=== PATIENT | female | born 1935 | race Caucasian/White ===

== ENCOUNTER 2018-05-30 21:30 | Observation (INO) | payer OTHER ==
[2018-05-30] MEDS ORDERED: TETANUS & DIPHTHERIA TOX,ADULT 0.5 ML VIAL ONE (21:58)
[2018-05-30] MEDS ORDERED: MORPHINE 2 MG/ML SYR ONE (21:58)
[2018-05-30] MEDS ORDERED: ONDANSETRON 4 MG/2 ML VIAL ONE (21:58)
[2018-05-30 22:12] LABS: Absolute Lymphocytes (CBC) 1.5 K/uL (0.7-4.9); Absolute Monocytes 0.5 K/uL (0.1-1.3); Absolute Neutrophil 4.2 K/uL (1.8-8.0); Basophils % 0.7 % (0-1.3); Eosinophils % 4.7 % (0-4.4); Hematocrit 35.4 % (36.0-45.0); Lymphocytes % 22.5 % (15.3-44.8); MPV 8.9 fL (7.6-11.3); Monocytes % 8.1 % (3.3-12.3); RBC Red Blood Cell Count 3.95 M/uL (3.86-4.86)
[2018-05-30 22:26] LABS: Potassium 4.3 mmol/L (3.5-5.1)
[2018-05-30] MEDS ORDERED: NA CHLORIDE 0.9% 1,000 ML ONE (23:04)
[2018-05-30] MEDS ORDERED: LIDOCAINE 1% 20 ML MDV ONE (23:08)
[2018-05-30] MEDS ORDERED: FENTANYL CITR 100 MCG/2 ML ONE (23:25)
--- NOTE | 2018-05-31 01:16 | ER ---
Nurse's Notes [facility] Name: Maryse Robins Age: 83 yrs Sex: Female : 1935 Arrival Date: 05/30/2018 Time: 21:31 Bed 4 Private MD: Diagnosis: Avulsion of scalp;Laceration without foreign body of scalp;Facial laceration;Contusion of right wrist Presentation: 05/30 21:31 Presenting complaint: EMS states: PT was walking down the [place] when she tripped and jb4 fell about 6 Ft hitting her head on one of the lower steps. She was not complaining of neck or back pain on scene, no LOC, was able to ambulate to the stretcher. Denies using blood thinners. Has a laceration to her head abrasion to the right wrist. Last Set of vitals 172/82, 100% 2l NC, HR 81. 21:31 Transition of care: patient was not received from another setting of care. Onset of jb4 symptoms was May 30, 2018. Risk Assessment: Do you want to hurt yourself or someone else? Patient reports no desire to harm self or others. Initial Sepsis Screen: Does the patient meet any 2 criteria? No. Patient's initial sepsis screen is negative. Does the patient have a suspected source of infection? No. Patient's initial sepsis screen is negative. Care prior to arrival: IV initiated. 18 GA, in the left antecubital area, Glucose check: 91. 21:31 Method Of Arrival: EMS: [facility] 21:31 Acuity: LUC 2 jb4 05/31 00:27 Mechanism of Injury: Fall down steps. Trauma event details: Injury occurred in the [address], Injury occurred: at home. Injury occurred: May 30, 2018. Triage Assessment: 05/30 21:44 General: Appears in no apparent distress. uncomfortable, Behavior is calm, cooperative. cc3 Pain: Complains of pain in head, right hand Pain currently is 10 out of 10 on a pain scale. Quality of pain is described as aching. EENT: Ear canal clear on bilateral. Neuro: Level of Consciousness is awake, alert, obeys commands, Oriented to person, place, time, situation, Appropriate for age. Cardiovascular: Patient's skin is warm and dry. Respiratory: Airway is patent Trachea midline Respiratory effort is even, unlabored, Respiratory pattern is regular, symmetrical. GI: Abdomen is round non-distended. : No signs and/or symptoms were reported regarding the genitourinary system. Derm: Wound noted left side of the head. Musculoskeletal: Circulation, motion, and sensation intact. Range of motion: limited in right hand and bilateral lower limbs. Trauma Activation: Alert Physician: ED Physician; Name: Dr. Andrade; Notified At: 21:22; Arrived At: 21:22 Physician: General Surgeon; Name: ; Notified At: 21:22; Arrived At: Physician: Radiology; Name: ; Notified At: 21:22; Arrived At: 21:22 Physician: Respiratory; Name: ; Notified At: 21:22; Arrived At: 21:22 Physician: Lab; Name: ; Notified At: 21:22; Arrived At: 21:22 Historical: - Allergies: 21:31 No Known Allergies; jb4 - Home Meds: 21:31 Singulair Oral [Active]; Melatonin Oral [Active]; Zyrtec Oral [Active]; cholesterol jb4 [Active]; - PMHx: 21:31 Dementia; jb4 - PSHx: 21:31 knee replacement x2; jb4 - Immunization history:: Adult Immunizations up to date, Flu vaccine is not up to date. - Social history:: Smoking status: Patient/guardian denies using tobacco, Patient/guardian denies using alcohol. - Immunization history: Last tetanus immunization: unknown. - Ebola Screening: : No symptoms or risks identified at this time. - Family history:: not pertinent. - Hospitalizations: : No recent hospitalization is reported. Screenin:44 Abuse screen: Denies threats or abuse. Denies injuries from another. Nutritional cc3 screening: No deficits noted. Tuberculosis screening: No symptoms or risk factors identified. Fall Risk Ambulatory Aid- None/Bed Rest/Nurse Assist (0 pts). Gait- Impaired (20 pts.). Mental Status- Oriented to own ability (0 pts). Primary Survey: 21:44 Uncontrolled hemorrhage is observed, assessment has been re-ordered to <C> ABC. A: The cc3 patient is alert. Airway: patent, Oxygen via nasal cannula at 2 liters per minute. Oral cavity: clear, gag reflex present, Trachea midline. Breathing/Chest: Respiratory pattern: regular, Respiratory effort: spontaneous, unlabored, Breath sounds: clear, bilaterally. Chest inspection: symmetrical rise and fall of the chest. Circulation: Heart tones present. Skin color: pink, Skin temperature: warm, dry. Disability Alert. Exposure/Environment: All clothing and personal items were removed. Forensic evidence collection is not deemed to be indicated at this time. Items placed in patient belonging bag. There is evidence of uncontrolled external hemorrhage. Provider notified immediately. Methods to control bleeding applied. Obvious injury(ies) are noted at this time: lacerated wound on the left side of the head A warming method has been applied: A warm blanket has been provided to the patient. 05/31 00:27 Reassessment Airway Airway Patent Breathing/Chest Respiratory pattern Regular ak1 Respiratory effort Unlabored Circulation Color [place]anger Temperature Warm Dry Disability Alert. Secondary Survey: 05/30 21:48 HEENT: Head Other lacerated wound on the left side of the head/scalp Face Other cc3 abrasions on the face and nasal bridge Eyes: No injury or deformity noted. to bilateral eyes. Ears: clear bilaterally. Nose: clear to bilateral nares. Gastrointestinal: Abdomen is soft, flat, non-distended. : No signs and/or symptoms were reported regarding the genitourinary system. Musculoskeletal: Circulation, motion, and sensation intact. Range of motion: limited in right hand and bilateral legs. Injury Description: Laceration sustained to left side of the head. Assessment: 05/31 00:28 Reassessment: Patient appears in no apparent distress at this time. No changes from ak1 previously documented assessment. Patient and/or family updated on plan of care and expected duration. Pain level reassessed. Patient is alert, oriented x 3, equal unlabored respirations, skin warm/dry/pink. pt tolerated sutures well. noticed lice in pt's hair while suturing. pt granddaughter informed. 02:01 Reassessment: Patient appears in no apparent distress at this time. No changes from ak1 previously documented assessment. Patient and/or family updated on plan of care and expected duration. Pain level reassessed. Patient is alert, oriented x 3, equal unlabored respirations, skin warm/dry/pink. family and pt informed of need to stay. Dr. Cooley at bedside. bonnet placed on pt's head due to lice. 04:23 Reassessment: Patient appears in no apparent distress at this time. No changes from ak1 previously documented assessment. Patient and/or family updated on plan of care and expected duration. Pain level reassessed. Patient is alert, oriented x 3, equal unlabored respirations, skin warm/dry/pink. report called to Emily nurse for 417. Vital Signs: 05/30 21:31 BP 137 / 84; Pulse 82; Resp 20; Temp 98.5(O); Pulse Ox 100% on R/A; Weight 54.43 kg jb4 (R); Height 5 ft. 4 in. (162.56 cm) (R); Pain 10/10; 22:30 BP 132 / 74; Pulse 18; Resp 78; Pulse Ox 99% on R/A; ea 23:13 BP 143 / 65; Pulse 83; Resp 17; Pulse Ox 100% on R/A; ea 05/31 00:29 BP 154 / 73; Pulse 83; Resp 18; Pulse Ox 98% on R/A; ak1 01:45 BP 99 / 81; Pulse 87; Resp 16; Pulse Ox 100% on R/A; ea 03:26 BP 135 / 60; Pulse 72; Resp 18; Temp 98.1; Pulse Ox 100% on R/A; ak1 04:10 BP 126 / 59; Pulse 71; Resp 18; Temp 98.1(O); Pulse Ox 100% on R/A; Pain 0/10; ak1 05/30 21:31 Body Mass Index 20.60 (54.43 kg, 162.56 cm) jb4 Wasta Coma Score: 05/30 21:44 Eye Response: spontaneous(4). Verbal Response: oriented(5). Motor Response: obeys cc3 commands(6). Total: 15. 05/31 00:41 Eye Response: spontaneous(4). Verbal Response: oriented(5). Motor Response: obeys rn commands(6). Total: 15. 01:14 Eye Response: spontaneous(4). Verbal Response: oriented(5). Motor Response: obeys rn commands(6). Total: 15. Trauma Score (Adult): 05/30 21:44 Eye Response: spontaneous(1); Verbal Response: oriented(1); Motor Response: obeys cc3 commands(2); Systolic BP: > 89 mm Hg(4); Respiratory Rate: 10 to 29 per min(4); Wasta Score: 15; Trauma Score: 12 ED Course: 21:31 Patient arrived in ED. ds1 21:31 Arm band placed on left wrist. jb4 21:33 Todd Andrade MD is Attending Physician. rn 21:38 Zeus Pfeiffer RN is Primary Nurse. jb4 21:44 Mariola Adam is Primary Nurse. cc3 21:44 Patient has correct armband on for positive identification. Placed in gown. Bed in low cc3 position. Call light in reach. Side rails up X2. monitoring analyst on. Pulse ox on. NIBP on. 21:44 Maintain EMS IV. Dressing intact. Good blood return noted. Site clean \T\ dry. Gauge \T\ cc 3 site: gauge 18 left ACV. IV is patent, is intact, with fluids infusing freely, with good blood return. 21:45 Triage completed. jb4 22:00 XRAY Wrist RIGHT 3 view In Process Unspecified. EDMS 22:15 Report given to ALEXIA Ring. cc3 22:22 Radiology exam delayed due to lab results not completed at this time. (BUN/Creatinine). kw1 22:49 Consent for conscious sedation explained by staff, signed by patient, signed by ak1 guardian. 23:30 CT Traumagram (Head C Spine CAP W Con) In Process Unspecified. EDMS 05/31 00:25 Oxygen administration via nasal cannula \T\ 2L/min. ak1 00:26 Thermoregulation: warm blanket given to patient. ak1 00:26 Assist provider with laceration repair on head that was between 7.6 to 12.5 cm using ak1 sutures. Set up tray. Performed by Todd Andrade MD Patient tolerated well. 01:15 Rogerio Davidosn MD is Hospitalizing Provider. rn 01:50 Radiology exam delayed due to Currently receiving antibiotics. Asked to wait approx. 20 kw1 min. 02:[address] via stretcher. kw1 02:17 CT completed. Patient tolerated procedure well. Patient moved back from CT. kw1 02:52 CT Facial Bones W/O Con In Process Unspecified. EDMS 03:26 Patient admitted, IV remains in place. ak1 Administered Medications: 05/30 22:05 Drug: morphine 2 mg Route: IVP; Site: left antecubital; cc3 05/31 00:24 Follow up: Response: No adverse reaction [facility] 05/30 22:10 Drug: Zofran 4 mg Route: IVP; Site: left antecubital; cc3 05/31 00:24 Follow up: Response: No adverse reaction [facility] 05/30 22:12 Drug: Tetanus-Diphtheria Toxoid Adult 0.5 ml {Senior Portfolio Manager: [employer]. Exp: cc3 04/24/2020. Lot #: [id number]. } Route: IM; Site: left deltoid; 05/31 00:25 Follow up: Response: No adverse reaction [facility] 05/30 22:50 Drug: NS 0.9% 1000 ml Route: IV; Rate: 125 ml/hr; Site: left antecubital; [facility] 05/31 01:37 Follow up: IV Status: Infusion continued upon admission [facility] 05/30 23:30 Drug: Lidocaine (1 %) 1 vials Volume: 20 ml; Route: Infiltration; ak 23:50 Drug: fentaNYL (PF) 100 mcg Route: IVP; Site: left antecubital; ak1 05/31 00:24 Follow up: Response: No adverse reaction [facility] 01:45 Drug: Ancef 1 grams Route: IVPB; Site: left antecubital; ak1 02:37 Follow up: IV Status: Completed infusion ak Outcome: 01:16 Decision to Hospitalize by Provider. rn 02:02 Condition: stable ak 02:02 Instructed on the need for admit. 04:11 Admitted to Med/surg accompanied by nurse, family with patient, via stretcher, room ak1 [facility], with oxygen, with chart. 04:[address] results.Patient's length of stay extended due to 05:02 Patient left the ED. ak Signatures: Dispatcher [employer] EDKS LeesMelba ds1 Todd Andrade MD MD rn Krenek, Amber, RN RN ak1 Zeus Pfeiffer RN RN jb4 Dorothea Canada RN RN ea Wilhelm, Kimberly [facility] Mariola Adam cc3
--- NOTE | 2018-05-31 01:16 | EDPHYS ---
Physician Documentation [facility] Name: Maryse Robins Age: 83 yrs Sex: Female : 1935 Arrival Date: 05/30/2018 Time: 21:31 Bed 4 Private MD: ED Physician Todd Andrade HPI: 05/31 00:41 This 83 yrs old Female presents to ER via EMS with complaints of fall, head rn injury. 00:41 The patient or guardian reports injury, pain. The complaints affect the forehead. rn Onset: The symptoms/episode began/occurred just prior to arrival. Associated signs and symptoms: Loss of consciousness: This patient did not experience any loss of consciousness. Pertinent positives: headache, Pertinent negatives: nausea, vomiting, weakness in extremities, generalized weakness. Severity of symptoms: At their worst the symptoms were moderate, in the emergency department the symptoms are unchanged. The patient has not experienced similar symptoms in the past. Granddaughter brought patient after fall down 3 steps, fell forward, hit head on ground, no LOC, no vomiting, did not allow her to stand up or walk, no focal weakness, patient reports pain to low back, head, and right wrist. No vomiting. Stopped her aspirin a few months ago. . Historical: - Allergies: 05/30 21:31 No Known Allergies; jb4 - Home Meds: 21:31 Singulair Oral [Active]; Melatonin Oral [Active]; Zyrtec Oral [Active]; cholesterol jb4 [Active]; - PMHx: 21:31 Dementia; jb4 - PSHx: 21:31 knee replacement x2; jb4 - Immunization history:: Adult Immunizations up to date, Flu vaccine is not up to date. - Social history:: Smoking status: Patient/guardian denies using tobacco, Patient/guardian denies using alcohol. - Immunization history: Last tetanus immunization: unknown. - Ebola Screening: : No symptoms or risks identified at this time. - Family history:: not pertinent. - Hospitalizations: : No recent hospitalization is reported. ROS: 05/31 00:41 Constitutional: Negative for fever, chills, and weight loss, Eyes: Negative for injury, rn pain, redness, and discharge, ENT: Negative for injury, pain, and discharge, Neck: Negative for injury, pain, and swelling, Cardiovascular: Negative for chest pain, palpitations, and edema, Respiratory: Negative for shortness of breath, cough, wheezing, and pleuritic chest pain, Abdomen/GI: Negative for abdominal pain, nausea, vomiting, diarrhea, and constipation, Back: + low back pain MS/Extremity: + right wrist pain Skin: Negative for injury, rash, and discoloration, Neuro: + headache Exam: 00:41 Constitutional: This is a well developed, well nourished patient who is awake, alert, rn appears anxious Head/Face: Normocephalic, + large 18cm curvilinear laceration of scalp and forehead, + underlying 3cm x 2cm defect in galea at level of scalp and midline, no depression of skull, + lice Eyes: + bilateral periorbital swelling and tenderness ENT: Tympanic membranes are normal and external auditory canals are clear. Neck: NO midline tenderness Chest/axilla: Normal chest wall appearance and motion. Nontender with no deformity. No lesions are appreciated. Cardiovascular: Regular rate and rhythm. No pulse deficits. Respiratory: Lungs have equal breath sounds bilaterally, clear to auscultation. No increased work of breathing, no retractions or nasal flaring. Abdomen/GI: soft, non-tender Back: + lower back tenderness lumbar spine, no stepoff MS/ Extremity: Pulses equal, no cyanosis. Neurovascular intact. Full, normal range of motion. + tenderness right distal radius with ecchymosis Neuro: Awake and alert, GCS 15, oriented to person, place, and situation. Cranial nerves II-XII grossly intact. Motor strength 5/5 in all extremities. Sensory grossly intact. Cerebellar exam normal. Vital Signs: 05/30 21:31 BP 137 / 84; Pulse 82; Resp 20; Temp 98.5(O); Pulse Ox 100% on R/A; Weight 54.43 kg jb4 (R); Height 5 ft. 4 in. (162.56 cm) (R); Pain 10/10; 22:30 BP 132 / 74; Pulse 18; Resp 78; Pulse Ox 99% on R/A; ea 23:13 BP 143 / 65; Pulse 83; Resp 17; Pulse Ox 100% on R/A; ea 05/31 00:29 BP 154 / 73; Pulse 83; Resp 18; Pulse Ox 98% on R/A; ak1 01:45 BP 99 / 81; Pulse 87; Resp 16; Pulse Ox 100% on R/A; ea 03:26 BP 135 / 60; Pulse 72; Resp 18; Temp 98.1; Pulse Ox 100% on R/A; ak1 04:10 BP 126 / 59; Pulse 71; Resp 18; Temp 98.1(O); Pulse Ox 100% on R/A; Pain 0/10; ak1 05/30 21:31 Body Mass Index 20.60 (54.43 kg, 162.56 cm) jb4 Timothy Coma Score: 05/30 21:44 Eye Response: spontaneous(4). Verbal Response: oriented(5). Motor Response: obeys cc3 commands(6). Total: 15. 05/31 00:41 Eye Response: spontaneous(4). Verbal Response: oriented(5). Motor Response: obeys rn commands(6). Total: 15. 01:14 Eye Response: spontaneous(4). Verbal Response: oriented(5). Motor Response: obeys rn commands(6). Total: 15. Trauma Score (Adult): 05/30 21:44 Eye Response: spontaneous(1); Verbal Response: oriented(1); Motor Response: obeys cc3 commands(2); Systolic BP: > 89 mm Hg(4); Respiratory Rate: 10 to 29 per min(4); Timothy Score: 15; Trauma Score: 12 Laceration: 05/31 00:11 Wound Repair of 18cm ( 7.1in ) subcutaneous laceration to face. Distal rn neuro/vascular/tendon intact. Anesthesia: Regional Block with 5 mls of 1% lidocaine. Wound prep: Extensive cleansing by nurse by oh, Wound irrigation by nurse by oh, Particulate matter removal of dirt, Wound explored extensively, Copious irrigation. Skin closed with 18 5-0 Prolene using interrupted sutures and sterile technique. galea/subcutaneous closed with 5 3-0 chromic gut using interrupted sutures and sterile technique. Dressed with kerlix. Patient tolerated well. MDM: 05/30 21:33 Patient medically screened. rn 05/31 01:10 ED course: CT head/chest/abd/pelvis negative for acute traumatic injury, scalp/facial rubber turner closed, abx given, consulted with Dr. Davidson, will admit to his service, requests hospitalist consult. . 01:14 Differential diagnosis: Contusion of Hematoma on Laceration of Intracranial bleed- rn Concussion. Data reviewed: vital signs, nurses notes, lab test result(s), radiologic studies, CT scan. 01:15 Counseling: I had a detailed discussion with the patient and/or guardian regarding: the rn historical points, exam findings, and any diagnostic results supporting the discharge/admit diagnosis, lab results, radiology results, the need for further work-up and treatment in the hospital. Response to treatment: the patient's symptoms have markedly improved after treatment. Admission orders: after a detailed discussion of the patient's condition and case, the admit orders are written by me. 05/30 21:34 Order name: Basic Metabolic Panel; Complete Time: 22:55 rn 05/30 21:34 Order name: CBC with Diff; Complete Time: 22:55 rn 05/30 21:34 Order name: CT Traumagram (Head C Spine CAP W Con) rn 05/30 21:34 Order name: Creatinine for Radiology; Complete Time: 22:55 rn 05/30 21:34 Order name: Type And Screen; Complete Time: 00:17 rn 05/30 21:34 Order name: XRAY Wrist RIGHT 3 view rn 05/31 00:24 Order name: CT Facial Bones W/O Con rn 05/30 21:34 Order name: Labs collected and sent; Complete Time: 22:26 rn 05/31 01:15 Order name: EKG; Complete Time: 01:15 rn 05/31 01:15 Order name: EKG - Nurse/Tech; Complete Time: 01:45 rn 05/31 03:58 Order name: CONS Physician Consult EDMS Administered Medications: 05/30 22:05 Drug: morphine 2 mg Route: IVP; Site: left antecubital; cc3 05/31 00:24 Follow up: Response: No adverse reaction ak1 05/30 22:10 Drug: Zofran 4 mg Route: IVP; Site: left antecubital; cc3 05/31 00:24 Follow up: Response: No adverse reaction ak1 05/30 22:12 Drug: Tetanus-Diphtheria Toxoid Adult 0.5 ml {Slitter Cut Off Operator: [employer]. Exp: cc3 04/24/2020. Lot #: [id number]. } Route: IM; Site: left deltoid; 05/31 00:25 Follow up: Response: No adverse reaction ak1 05/30 22:50 Drug: NS 0.9% 1000 ml Route: IV; Rate: 125 ml/hr; Site: left antecubital; ak1 05/31 01:37 Follow up: IV Status: Infusion continued upon admission ak1 05/30 23:30 Drug: Lidocaine (1 %) 1 vials Volume: 20 ml; Route: Infiltration; ak1 23:50 Drug: fentaNYL (PF) 100 mcg Route: IVP; Site: left antecubital; ak1 05/31 00:24 Follow up: Response: No adverse reaction ak1 01:45 Drug: Ancef 1 grams Route: IVPB; Site: left antecubital; ak1 02:37 Follow up: IV Status: Completed infusion ak1 Disposition: 05/31/18 01:16 Hospitalization ordered by Rogerio Davidson for Observation. Preliminary diagnosis are Avulsion of scalp, Laceration without foreign body of scalp, Facial laceration, Contusion of right wrist. - Bed requested for Telemetry/MedSurg (observation). - Status is Observation. ak1 - Condition is Stable. - Problem is new. - Symptoms have improved. UTI on Admission? No Signatures: Dispatcher [employer] EDMS Inés Mcqueen RN RN kl Ballard, Brenda, RN RN bb Nieto, Roman, MD MD rn Krenek, Amber, RN RN ak1 Zeus Pfeiffer RN RN jb4 Mariola Adam cc3 Corrections: (The following items were deleted from the chart) 01:06 00:41 Constitutional: This is a well developed, well nourished patient who is awake, rn alert, appears anxious Head/Face: Normocephalic, + large 18cm curvilinear laceration of scalp and forehead, + underlying 3cm x 2cm defect in galea at level of scalp and midline, no depression of skull Eyes: + bilateral periorbital swelling and tenderness ENT: Tympanic membranes are normal and external auditory canals are clear. Neck: NO midline tenderness Chest/axilla: Normal chest wall appearance and motion. Nontender with no deformity. No lesions are appreciated. Cardiovascular: Regular rate and rhythm. No pulse deficits. Respiratory: Lungs have equal breath sounds bilaterally, clear to auscultation. No increased work of breathing, no retractions or nasal flaring. Abdomen/GI: soft, non-tender Back: + lower back tenderness lumbar spine, no stepoff MS/ Extremity: Pulses equal, no cyanosis. Neurovascular intact. Full, normal range of motion. + tenderness right distal radius with ecchymosis Neuro: Awake and alert, GCS 15, oriented to person, place, and situation. Cranial nerves II-XII grossly intact. Motor strength 5/5 in all extremities. Sensory grossly intact. Cerebellar exam normal. rn 01:27 00:11 Wound Repair of 18cm ( 7.1in ) subcutaneous laceration to face. Distal rn neuro/vascular/tendon intact. Anesthesia: Regional Block with 5 mls of 1% lidocaine. Wound prep: Extensive cleansing by nurse by me, Wound irrigation by nurse by me, Particulate matter removal of dirt, Wound explored extensively, Copious irrigation. Skin closed with 18 5-0 Prolene using interrupted sutures and sterile technique. galea closed with 5 3-0 chromic gut using interrupted sutures and sterile technique. Dressed with kerlix. Patient tolerated well. rn 04:06 01:16 Hospitalization Ordered by Rogerio Davidson MD for Observation. Preliminary diagnosis kl is Avulsion of scalp; Laceration without foreign body of scalp; Facial laceration; Contusion of right wrist. Bed requested for Telemetry/MedSurg (observation). Status is Observation. Condition is Stable. Problem is new. Symptoms have improved. UTI on Admission? No. rn 05:02 04:06 05/31/2018 01:16 Hospitalization Ordered by Rogerio Davidson MD for Observation. ak1 Preliminary diagnosis is Avulsion of scalp; Laceration without foreign body of scalp; Facial laceration; Contusion of right wrist. Bed requested for Telemetry/MedSurg (observation). Status is Observation. Condition is Stable. Problem is new. Symptoms have improved. UTI on Admission? No. kl
[2018-05-31] MEDS ORDERED: CEFAZOLIN SODIUM 1 GM/VIAL ONE (01:52)
[2018-05-31] MEDS ORDERED: NA CHLORIDE 0.9% 50 ML IV ONE (01:53)
[2018-05-31] MEDS ORDERED: ONDANSETRON 4 MG/2 ML VIAL IV PRN (04:54)
[2018-05-31 05:18] VITALS: BMI 22.3
--- NOTE | 2018-05-31 05:33 | P.CNS ---
Date of Consult: 05/31/18 Reason for Consult: co-management Requesting Physician: Rogerio Davidson Chief Complaint: fall, scalp lasceration History of Present Illness: Ms Robins is an 83 years old woman with history of dementia, who fell down 3 steps, leading with a large area of scalp laceration. Apparently she tripped and fell. The patient did not have LOC. At my encounter the patient was confused and not able to provide further history. Lab work shows normal WBC count. Facial bone CT scan shows age indeterminate nasal bone fracture, right wrist XR shows no fracture, CT head/neck/chest/abd and pelvis showed no acute abnormalities other than swelling tissue on her left frontal scalp area. Allergies codeine Allergy (Intermediate, Verified 07/08/11 15:05) Rash Home medications list reviewed: Yes Home Medications: Alendronate Sodium [Fosamax] 35 mg PO 1X 07/04/11 Cholecalciferol (Vitamin D3) [Vitamin D3] 1,000 unit PO DAILY 07/04/11 Esomeprazole Mag Trihydrate [Nexium] 40 mg PO DAILY 07/04/11 Ferrous Fumarate [Iron] 65 mg PO DAILY 07/04/11 Melatonin 5 mg PO DAILY 07/04/11 Naproxen Sodium [Aleve] 220 mg PO BID 07/04/11 Pravastatin [Pravachol*] 40 mg PO DAILY 07/04/11 Siberian Ginseng Root [Ginseng] 250 mg PO DAILY 07/04/11 Enoxaparin Sodium [Lovenox] 40 mg SQ DAILY #10 ml 07/11/11 Ferrous Gluconate [Fergon] 300 mg PO DAILY #30 tab 07/11/11 Hydrocodone/Acetaminophen [Dunlap 5-325 Tablet] 1 - 2 tab PO Q4H PRN #50 tablet 07/11/11 - Past Medical/Surgical History Diabetic: No -: dementia -: knee replacement - Family History Father History Unknown: Yes Mother History Unknown: Yes - Social History Smoking Status: Former smoker Alcohol use: Yes CD- Drugs: No Caffeine use: Yes Place of Residence: Home Review of Systems 10-point ROS is otherwise unremarkable Physical Examination Temp Pulse Resp BP Pulse Ox 97.6 F 81 14 129/61 95 05/31/18 05:16 05/31/18 05:16 05/31/18 05:16 05/31/18 05:16 05/31/18 05:16 General: Alert, In no apparent distress, Demented, Confused HEENT: PERRLA, Mucous membr. moist/pink, Other (traumatic left frontal scalp laceration), Sclerae nonicteric Neck: Supple, 2+ carotid pulse no bruit, No LAD, Without JVD or thyroid abnormality Respiratory: Clear to auscultation bilaterally, Normal air movement Cardiovascular: Normal S1 S2, No gallops Gastrointestinal: Normal bowel sounds, No tenderness Musculoskeletal: No tenderness Integumentary: No rashes Neurological: Normal tone, Normal affect, Dementia Lymphatics: No axilla or inguinal lymphadenopathy Laboratory Data (last 24 hrs) 05/30/18 22:00: Creatinine 1.12 05/30/18 22:00: WBC 6.5, Hgb 11.8 L, Hct 35.4 L, Plt Count 226 05/30/18 22:00: Sodium 142, Potassium 4.3, BUN 17, Creatinine 1.14, Glucose 110 H - Problems (1) Dementia Current Visit: Yes Status: Acute Qualifiers: Dementia type: unspecified type Dementia behavioral disturbance: without behavioral disturbance Qualified Code(s): F03.90 - Unspecified dementia without behavioral disturbance (2) Fall Current Visit: Yes Status: Acute Qualifiers: Encounter type: initial encounter Qualified Code(s): W19.XXXA - Unspecified fall, initial encounter (3) Laceration of scalp Current Visit: Yes Status: Acute Qualifiers: Encounter type: initial encounter Qualified Code(s): S01.01XA - Laceration without foreign body of scalp, initial encounter Conclusions/Impression: The patient had stitches placed over her left frontal scalp laceration. She will be followed up by Dr Davidson. Will resume her home medication after verification. Critical Care: No
[2018-05-31] MEDS: NA CHLORIDE 0.9% 1,000 ML IV SCH ×2 (05:54→13:10)
[2018-05-31] MEDS: MEPERIDINE HCL 25 MG/0.5 ML IV PRN ×2 (05:55→10:44)
[2018-05-31] MEDS ORDERED: INFLUENZA VACCINE (for 3y+) 0.5 ML DOSE IMVAC ONE (08:00)
[2018-05-31] MEDS ORDERED: PNEUMOCOCCAL VACCINE 0.5 ML IMVAC ONE (08:00)
[2018-05-31] MEDS ORDERED: CEFAZOLIN/NS 1gm 1 GM/50 ML BAG IVPB SCH (09:00)
[2018-05-31] MEDS: CEFAZOLIN/SWI 1gm 1 GM/10 ML SYR IV SCH ×2 (10:39→21:45)
[2018-05-31] MEDS ORDERED: LICE TREATMENT 1 APPL/120 ML BTL TOP ONE (10:45)
--- NOTE | 2018-05-31 11:47 | RAD REPORT ---
EXAM DESCRIPTION: CT head without intravenous contrast CT cervical spine without intravenous contrast CT Chest With Intravenous Contrast CT Abdomen and Pelvis With Intravenous Contrast CLINICAL HISTORY: The patient is 83 years old and is Female; fall down stairs, head trauma, back christie n, pelvic pain TECHNIQUE: Axial computed tomography images of the brain/head and cervical spine without contrast as well as chest, abdomen and pelvis with intravenous contrast. Sagittal and coronal reformatted imag es were created and reviewed. This CT exam was performed using one or more of the following dose re duction techniques: automated exposure control, adjustment of the mA and/or kV according to patient size, and/or use of iterative reconstruction technique. COMPARISON: None. FINDINGS: Brain: No acute intracranial hemorrhage. No acute territorial infarct. No extra-axial collection. No mass ef fect or herniation. Mild prominence of the sulci and cisterns Confluent periventricular and subcort ical white matter hypodensity is noted. Ventricles: Allowing for underlying cerebral volume loss, ventricular size appears within normal limi ts.. Globes and orbits: No acute abnormality. CHEST: LUNGS: See below. PLEURAL SPACE: No pleural effusion or pneumothorax. Dependent subsegmental atelectasis bilaterally . Scattered centrilobular nodularities and tree-in-bud opacities in the upper and midlung zones. Mild apical pleural thickening/calcification. HEART: Confluent periventricular white matter hypodensity. No significant pericardial effusion. THYROID: Two 1.1 cm posterior right thyroid hypodense nodules. ABDOMEN: LIVER: Unremarkable. No mass. GALLBLADDER AND BILE DUCTS: Unremarkable. No calcified stones. No ductal dilation. PANCREAS: Unremarkable. No ductal dilation. No mass. SPLEEN: Unremarkable. No splenomegaly. ADRENALS: Unremarkable. No mass. KIDNEYS AND URETERS: 1.6 cm left renal hypodensity, likely cyst. No hydronephrosis or hydroureter. No solid mass. STOMACH AND BOWEL: Unremarkable. No obstruction. No mucosal thickening. PELVIS: APPENDIX: The appendix is seen and is within normal limits BLADDER: Unremarkable. No mass. REPRODUCTIVE: 1.6 cm heterogenous enhancing mass in the right fundus of the uterus, likely fibroid . CHEST, ABDOMEN and PELVIS: INTRAPERITONEAL SPACE: No intracranial hemorrhage. No extra-axial collection. No mass effect or mi dline shift. No free air. BONES/JOINTS: No underlying fracture. Advanced osteopenia. Multilevel degenerative changes with anterolisthesis of C3 on C4, C4 on C5 as well as C5 on C6. Flexion. Advanced osteopenia and degenerative changes with multilevel step-like anterolisthe ses and lower cervical disc space narrowing. Disc space narrowing at C5-6, C6-7 and C7-T1. Levoscoliosis of the lumbar spine centered at L1 with slight lateral subluxation of L1 with respect to L2. Diffuse lumbar degenerative disc disease with reactive endplate sclerosis and scattere d vacuum phenomenon. Grade 1 anterolisthesis of L4 on L5 on a degenerative basis. SOFT TISSUES: Large soft tissue laceration involving the left frontotemporal scalp. There is quest ionable extravasation of the outer table. Trace subcutaneous emphysema is seen. Small area of soft tissue swelling in the cutaneous hematoma in the left right supraorbital soft tissues. Thickening of the retrodental soft tissues. VASCULATURE: No aortic dissection or aneurysm. Mild calcification of the abdominal aorta. LYMPH NODES: Unremarkable. No enlarged lymph nodes. OTHER FINDINGS: Cerebral volume loss. IMPRESSION: 1. No acute intracranial hemorrhage or herniation. 2. No acute fracture of the cervical spine. 3. No posttraumatic intrathoracic, abdominal or pelvic abnormality. 4. Large soft tissue laceration of the left frontotemporal scalp. No underlying osseous abnormality . 5. Additional small area of swelling/hematoma in the right supraorbital soft tissues. 6. Apical pleural thickening/calcification and scattered nodularities and tree-in-bud opacities sug gestive of chronic lung changes versus small airway disease. 7. Two 1.1 cm posterior right thyroid hypodense nodules. No follow-up imaging is recommended. Reference: J Am Ivanna Radiol. 2015 May;12(2): 143-50. 8. Large hiatal hernia. 9. Uterine fibroid. 10. Advanced osteopenia, lumbar dextroscoliosis and advanced multilevel multifactorial degenerative c hanges. Electronically signed by: Kedar Garcia DO 05/30/2018 11:53 PM SENIOR ENGINEERING SPECIALIST ADDENDUM: Cerebral volume loss and chronic small vessel ischemic changes. If clinical concern for ac [place] ischemia, consider MRI brain without contrast for further evaluation. Electronically signed by: Kedar Garcia DO 05/31/2018 12:03 AM SENIOR ENGINEERING SPECIALIST Due to temporary technical issues with the PACS/Fluency reporting system, reports are being signed by the in house radiologist as a courtesy to ensure prompt reporting. The interpreting radiologist is f ully responsible for the content of the report.
--- NOTE | 2018-05-31 11:58 | RAD REPORT ---
EXAM DESCRIPTION: CT maxillofacial without IV contrast CLINICAL HISTORY: 83-year-old female with facial pain. TECHNIQUE: Axial CT of the facial bones was performed without intravenous contrast with sagittal and coronal reformatted images. The CT study is performed according to ALARA (as low as reasonably achie vable) or ALARA/IMAGE GENTLY, with automatic adjustment of mA and/or kV according to patient size. Performed on: 05/31/2018 at 2:17 AM COMPARISON: Head CT performed on 05/30/2018. FINDINGS: The bony orbits are intact. Both globes are intact and are symmetric. The extraocular mu scles and optic nerves are symmetric. The intraconal fat is preserved. There is no evidence of intrao rbital emphysema. There is evidence of prior bilateral scleral banding. There is no significant mucosal thickening of the paranasal sinuses. There are age indeterminate, nondisplaced bilateral nasal bone fractures. The bony nasal septum is de viated towards the left. The anterior maxillary spine is intact. The mandible is intact. The tempor omandibular joints are preserved. There are degenerative changes of the cervical spine. The visualized mastoid air cells and middle ear cavities are clear. There is mild right frontal scalp soft tissue swelling and minimal subcutaneous emphysema consistent with a small laceration. IMPRESSION: 1. There are age indeterminant, nondisplaced bilateral nasal bone fractures.. 2. Mild right frontal scalp soft tissue swelling and small laceration. 3. Leftward deviation of the nasal septum. Electronically signed by: Elizabeth Maradiaga DO 05/31/2018 3:38 AM SEARCH ADVERTISING STRATEGIST Due to temporary technical issues with the PACS/Fluency reporting system, reports are being signed by the in house radiologist as a courtesy to ensure prompt reporting. The interpreting radiologist is f ully responsible for the content of the report.
--- NOTE | 2018-05-31 12:20 | RAD REPORT ---
EXAM DESCRIPTION: Wrist Right 3 View CLINICAL HISTORY: 83 years Female, Pain COMPARISON: None. FINDINGS: There is severed osteoarthritis about the STT joint and the first carpometacarpal joint. There is chondrocalcinosis of the pericardial fibrocartilage and the intercarpal ligaments. There is moderately severe soft tissue swelling about the distal radius and ulna. IMPRESSION: 1. 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 2. Chondrocalcinosis. 3. Soft tissue swelling. Electronically signed by: Teresa Pastor MD 05/30/2018 11:24 PM FOOD TRAY ASSEMBLER workstation: [id number] Due to temporary technical issues with the PACS/Fluency reporting system, reports are being signed by the in house radiologist as a courtesy to ensure prompt reporting. The interpreting radiologist is f kevinly responsible for the content of the report.
[2018-05-31 14:16] LABS: Urine Appearance CLEAR; Urine Bilirubin NEGATIVE (NEG); Urine Blood NEGATIVE (NEG); Urine Color YELLOW; Urine Glucose NEGATIVE (NEG); Urine Protein NEGATIVE (NEG); Urine Specific Gravity >=1.030 (1.005-1.030); Urine Urobilinogen 0.2 mg/dL (0.2-1.0); Urine pH 6.5 (5.0-7.0)
[2018-05-31 14:18] LABS: Urine Microscopic Reflex ORDER UMIC
[2018-05-31 16:33] LABS: Urine Bacteria 20-50 /HPF (<20); Urine Culture Reflex Order REFLEXED; Urine RBC <5 /HPF (NONE SEEN)
--- NOTE | 2018-05-31 18:41 | EKG ---
Test Date: 2018-05-31 Test Time: 01:40:38 Swimming Pool Installer And Servicer: EASTON MEASUREMENT RESULTS: Intervals: Rate: 78 HI: 188 QRSD: 56 QT: 358 QTc: 408 [place]: P: 105 HI: 188 QRS: 47 T: 87 INTERPRETIVE STATEMENTS: Sinus rhythm with premature atrial complexes Abnormal ECG Compared to ECG 05/31/2018 01:40:12 no significant change from previous ECG Electronically Signed On 05-31-18 18:41:01 PATIENT SUPPORT PARTNER by Ricci Monique
--- NOTE | 2018-05-31 18:41 | EKG ---
Test Date: 2018-05-31 Test Time: 01:40:12 Steam Tank Operator: EASTON MEASUREMENT RESULTS: Intervals: Rate: 84 SD: 154 QRSD: 62 QT: 398 QTc: 470 [place]: P: 99 SD: 154 QRS: 44 T: 13 INTERPRETIVE STATEMENTS: Sinus rhythm with premature atrial complexes Otherwise normal ECG Compared to ECG 05/16/2012 13:23:28 Atrial premature complex(es) now present Electronically Signed On 05-31-18 18:41:10 FIELD CROP GROWER by Ricci Monique
--- NOTE | 2018-05-31 21:50 | HP ---
Date of Admission: 05/31/2018 Reason: Status post fall. History Of Present Illness: The patient is an 83-year-old female with dementia, who fell while hanh li down the stairs approximately 3 steps, landed on her face and scalp, complaining of nonspecific pa in around the head and neck region. She has dementia, unable to give an adequate review of systems. Based on the ER documentation, she did not have LOC, no specific point localization of pain. She is breathing well. Her vitals have remained stable. She had a traumagram done as well as facial x-ray s and right wrist x-rays only showing a nondisplaced nasal fracture and no other significant findings . She was admitted for observation and physical therapy prior to discharge. She is awake and alert, in no acute distress at this time. Review of Systems: Otherwise unremarkable. Past Medical History: Significant for dementia and knee replacement. Allergies: INCLUDE CODEINE. Social History: She does not smoke currently, she used to in the past. Drinks alcohol occasionally. Family History: Noncontributory. Physical Examination: Vital Signs: Stable. She is afebrile. General: She is awake, confused. Head and Neck: Cranial nerves 2 through 12 are grossly within normal limits. No neck masses. No JV D. Throat clear. Neck is supple. Trachea is midline. Neck is nontender and there is approximately a 15-cm laceration on the left frontal region, which has been suture closed by the ER physician, tanya ks clean, dry, and intact. There is some ecchymosis underneath the eyes and the nose bones are tende r. Chest: Clear. Heart: S1, S2. Abdomen: Soft, nondistended, and nontender. Pelvis: Stable. Extremities: Full range of motion. Nontender. Neuro: Nonfocal. Diagnostic Data: Facial bones show a nondisplaced nasal fracture. Wrist x-ray is negative. Head, C -spine, chest, abdomen, and pelvis CT are all negative except for the laceration on the left frontal region. There is no intracranial injury. Laboratory Data: Reviewed. H and H are 11.8 and 35.4. Platelets are 226. Chemistry reviewed. Glu cose is 110, otherwise essentially unremarkable. Assessment: An 83-year-old female, status post fall with a nasal fracture and laceration of the left frontal region. Recommendations: We will get Physical Therapy to help the patient with ambulation once they clear he r. She will be discharged home tomorrow. The hospitalist is consulted to manage her medical issues, parenteral pain management, incentive spirometry, and DVT prophylaxis. CONNOR/GIANNA Voice ID: [id number]
[2018-06-01] MEDS: NA CHLORIDE 0.9% 1,000 ML IV SCH (01:19)
[2018-06-01 04:43] LABS: RBC Red Blood Cell Count 3.09 M/uL (3.86-4.86)
[2018-06-01 04:44] LABS: Absolute Lymphocytes (CBC) 1.3 K/uL (0.7-4.9); Absolute Monocytes 0.5 K/uL (0.1-1.3); Absolute Neutrophil 2.1 K/uL (1.8-8.0); Basophils % 1.1 % (0-1.3); Eosinophils % 8.1 % (0-4.4); Hematocrit 27.5 % (36.0-45.0); MPV 9.1 fL (7.6-11.3); Monocytes % 11.6 % (3.3-12.3)
[2018-06-01 05:04] LABS: Potassium 3.9 mmol/L (3.5-5.1)
[2018-06-01] MEDS: CEFAZOLIN/SWI 1gm 1 GM/10 ML SYR IV SCH (08:59)
[2018-06-01 09:53] VITALS: O2SAT 96
--- NOTE | 2018-06-01 13:52 | P.PN ---
Subjective Date of Service: 06/01/18 Chief Complaint: fall, scalp lasceration Subjective: Ambulating, Improving, Working w/ PT, Doing well Review of Systems 10-point ROS is otherwise unremarkable Physical Examination - Vital Signs Temperature: 98.4 F Blood Pressure: 137/62 Pulse: 87 Respirations: 18 Pulse Ox (%): 96 - Physical Exam General: Alert, In no apparent distress HEENT: PERRLA, Other (Patient with laceration on the right forehead. Incision clean dry and intact), EOMI Neck: Supple, JVD not distended Respiratory: Clear to auscultation bilaterally, Normal air movement Cardiovascular: Regular rate/rhythm, Normal S1 S2 Gastrointestinal: Normal bowel sounds, No tenderness Musculoskeletal: No tenderness Integumentary: No rashes Neurological: Normal speech, Normal tone, Normal affect Lymphatics: No axilla or inguinal lymphadenopathy - Studies Medications List Reviewed: Yes Assessment And Plan - Current Problems (Diagnosis) (1) Fall Current Visit: Yes Status: Acute Qualifiers: Encounter type: initial encounter Qualified Code(s): W19.XXXA - Unspecified fall, initial encounter (2) Laceration of scalp Current Visit: Yes Status: Acute Qualifiers: Encounter type: initial encounter Qualified Code(s): S01.01XA - Laceration without foreign body of scalp, initial encounter (3) Dementia Current Visit: Yes Status: Chronic Qualifiers: Dementia type: unspecified type Dementia behavioral disturbance: without behavioral disturbance Qualified Code(s): F03.90 - Unspecified dementia without behavioral disturbance - Plan Patient doing well overall. Head laceration healing well. Patient worked up for syncope doing well as well. Treatment for lice provided. Patient to be discharged by general surgery today. Discharge Plan: Home Plan to discharge in: 48 Hours - Code Status/Comfort Care Code Status Assessed: Yes Critical Care: No
[2018-06-01 18:16] VITALS: BP 110/52; TEMP 98.7
--- NOTE | 2018-06-02 00:54 | DS ---
Date of Discharge: 06/01/2018 Admitting Diagnosis: Fall with scalp laceration and nasal fracture. Discharge Diagnosis: Fall with scalp laceration and nasal fracture. Hospital Course: The patient is an 83-year-old female who fell without loss of consciousness and joan tained nondisplaced nasal fracture and a large laceration on her left frontal region which was repair ed by the ER physician. She was admitted for observation. Physical Therapy was consulted to make santiago re she could move well and be able to take care of herself at home. She lives with her daughter. Sh e is tolerating diet, ambulating. Pain is minimal. Wound is clean. She is afebrile. Therefore, th e patient will be discharged to home. She was seen by the hospitalist for medical management. No si gnificant medical issues were identified. Therefore, the patient will be discharged to home. Disposition: Home. Condition: Stable. Discharge Instructions: Resume home medications and diet. Activity as tolerated. Neosporin to porter schwarz b.i.d. August shower. Follow up in my office on June 10 for suture removal. /MODL Voice ID: [id number] Report ID: [id number]
--- NOTE | 2018-06-02 12:25 | CON ---
Date of Consultation: 06/01/2018 Reason For Consultation: Possible nasal fracture. History Of Present Illness: Ms. Robins is an 83-year-old woman with a history of dementia, who fell down 3 steps leading to a large scalp laceration without loss of consciousness. The scalp laceration was repaired by the Trauma Surgery service and workup in the emergency room including a CT of the fa ce showed a possible nasal bone fracture of indeterminate age, and she was placed under observation f or further evaluation. Past Medical History: Dementia. Past Surgical History: Knee replacement. Family History: Unknown. Social History: Previous smoker. Review of Systems: Reviewed from previous documentation. Due to the patient's mental status, she is not able to provide further detail to me. Physical Examination: The patient is in no acute distress. She is alert. Her scalp laceration appears well closed with no bleeding or erythema. She has right periorbital ecchymosis and ecchymosis at the base of the colume lla and over the chin. Her pupils are equal, round, and reactive. Her extraocular movements are int act. There is minimal swelling over the nasal dorsum, but there is some tenderness to palpation. Th ere is no bleeding from the nostrils and no significant deviation of the nasal dorsum. Data: The patient's CT of the face is reviewed. There is no evidence of air-fluid levels within the maxillary sinuses. There is minimal soft tissue swelling and no other pertinent findings are noted other than as was noted by the radiologist. Assessment: Nasal contusion versus nasal fracture. With the patient's facial bruising and tendernes s of the dorsum, it is uncertain whether this radiographic finding represents an acute fracture or if her current symptoms would be explained by nasal contusion. In either case, the fracture is nondisp laced and there is no cosmetic deformity noted. No surgical intervention is warranted. I discussed these findings with the family member, who was at the bedside, and we will sign off. The patient can follow up with me on an as-needed basis. CHRISTOPHER/GIANNA Voice ID: [id number] Report ID: [id number]
== END 2018-06-01 16:15 | disposition home or self-care (01) ==
LOC: ER 21:30 → ERHOLD 05-31 03:56 → 4TH 05-31 04:25
PROVIDERS: ADMIT Surgery; ATTEND Surgery
PROC: 0JQ00ZZ Repair Scalp Subcutaneous Tissue and Fascia, Open Approach (ICD-10-PCS; principal; 2018-05-30)
DX: S02.2XXA Fracture of nasal bones, initial encounter for closed fracture (principal); S01.01XA Laceration without foreign body of scalp, initial encounter; W10.9XXA Fall (on) (from) unspecified stairs and steps, initial encounter; Y92.009 Unspecified place in unspecified non-institutional (private) residence as the place of occurrence of the external cause; Z23 Encounter for immunization; Z96.659 Presence of unspecified artificial knee joint; F03.90 Unspecified dementia, unspecified severity, without behavioral disturbance, psychotic disturbance, mood disturbance, and anxiety
CPT/HCPCS: 96365; 96361; 93005 ×2; 87088; 85025 ×2; 80048 ×2; 36415 ×2; 86900; 86850; 86901; 70450; 72125; 71260; 70486; 76377; 74177; 73110; 90714; 97116; 97163; 97530; 96375; 99285; 12005; Q9967; J3010; J2270; J2175 ×2; J0690 ×3; J7030 ×4; J2405; G0378 ×2; 81003; 81015; 87086

== ENCOUNTER 2020-09-09 00:11 | Emergency (ER) | payer OTHER ==
--- NOTE | 2020-09-09 01:41 | EDPHYS ---
Physician Documentation [facility] Name: Maryse Robins Age: 85 yrs Sex: Female : 1935 Arrival Date: 09/09/2020 Time: 00:13 Bed 7 Private MD: ED Physician Navjot Villanueva HPI: 09/09 03:02 This 85 yrs old Female presents to ER via EMS with complaints of possible FB tw4 arm after midline removal. 03:02 pt removed midline from left upper extremity . Onset: The symptoms/episode tw4 began/occurred just prior to arrival. Severity of symptoms: At their worst the symptoms were mild in the emergency department the symptoms are unchanged. The patient has not experienced similar symptoms in the past. Historical: - Allergies: 00:42 No Known Allergies; jb4 - Home Meds: 00:42 bisacodyl 10 mg Rectal supp 1 suppository once daily [Active]; divalproex 250 mg oral jb4 Tb24 [Active]; docusate sodium 100 mg Oral cap 1 cap 2 times per day [Active]; donepezil 5 mg oral tab 1 tab once daily [Active]; lactulose 20 gram/30 mL Oral soln 30 mL once daily [Active]; memantine 10 mg oral tab 1 tab 2 times per day [Active]; meropenem 500 mg intravenous solr every 8 hours [Active]; Milk of Magnesia 400 mg/5 mL Oral susp 30 mL every 8 hours [Active]; Nexium 40 mg Oral cpDR 1 cap once daily [Active]; Proctosol HC 2.5 % rectal crea every 8 hours [Active]; Remeron 15 mg Oral tab 1 tab once daily [Active]; acetaminophen-codeine 300-30 mg Oral tab 0.5 tabs twice a day [Active]; - PMHx: 00:42 Dementia; jb4 - PSHx: 00:42 knee replacement x2; jb4 - Immunization history:: Adult Immunizations up to date. - Social history:: Smoking status: unknown. ROS: 03:02 Constitutional: Negative for fever, chills, and weight loss, Eyes: Negative for injury, tw4 pain, redness, and discharge, Cardiovascular: Negative for chest pain, palpitations, and edema, Respiratory: Negative for shortness of breath, cough, wheezing, and pleuritic chest pain, Abdomen/GI: Negative for abdominal pain, nausea, vomiting, diarrhea, and constipation, Back: Negative for injury and pain, MS/Extremity: Negative for injury and deformity, Skin: Negative for injury, rash, and discoloration. Exam: 03:02 Constitutional: This is a well developed, well nourished patient who is awake, alert, tw4 and in no acute distress. Head/Face: Normocephalic, atraumatic. Chest/axilla: Normal chest wall appearance and motion. Nontender with no deformity. No lesions are appreciated. Cardiovascular: Regular rate and rhythm with a normal S1 and S2. No gallops, murmurs, or rubs. Normal PMI, no JVD. No pulse deficits. Respiratory: Lungs have equal breath sounds bilaterally, clear to auscultation and percussion. No rales, rhonchi or wheezes noted. No increased work of breathing, no retractions or nasal flaring. Abdomen/GI: Soft, non-tender, with normal bowel sounds. No distension or tympany. No guarding or rebound. No evidence of tenderness throughout. Back: No spinal tenderness. No costovertebral tenderness. Full range of motion. Skin: Warm, dry with normal turgor. Normal color with no rashes, no lesions, and no evidence of cellulitis. MS/ Extremity: Pulses equal, no cyanosis. Neurovascular intact. Full, normal range of motion. Neuro: Awake and alert, GCS 15, oriented to person, place, time, and situation. Cranial nerves II-XII grossly intact. Motor strength 5/5 in all extremities. Sensory grossly intact. Cerebellar exam normal. Normal gait. Vital Signs: 00:24 BP 145 / 73; Pulse 87; Resp 18; Temp 98.0; Pulse Ox 100% on R/A; Weight 49.9 kg (R); jb4 Height 5 ft. 4 in. (162.56 cm) (R); Pain 0/10; 01:56 BP 135 / 65; Pulse 77; Resp 18; Pulse Ox 96% on R/A; jb4 00:24 Body Mass Index 18.88 (49.90 kg, 162.56 cm) jb4 MDM: 01:33 Patient medically screened. tw4 03:02 Differential Diagnosis altered mental status. Data reviewed: vital signs, nurses notes. tw4 Data interpreted: Pulse oximetry: Interpretation: normal. Counseling: I had a detailed discussion with the patient and/or guardian regarding: the historical points, exam findings, and any diagnostic results supporting the discharge/admit diagnosis. Special discussion: I discussed with the patient/guardian in detail that at this point there is no indication for admission to the hospital. It is understood, however, that if the symptoms persist or worsen the patient needs to return immediately for re-evaluation. 09/09 00:19 Order name: Humerus Left XRAY tw4 09/09 00:19 Order name: CXR XRAY tw4 Administered Medications: No medications were administered Disposition: 09/09/20 01:40 Discharged to Home. Impression: Breakdown (mechanical) of infusion catheter. - Condition is Stable. - Discharge Instructions: Midline Catheter. - SBAR form, Medication Reconciliation Form, Thank You Letter, Antibiotic Education, Prescription Opioid Use form. - Follow up: Private Physician; When: Upon discharge from the Emergency Department; Reason: Recheck today's complaints, Continuance of care, Re-evaluation by your physician. - Problem is new. - Symptoms have improved. Signatures: Dispatcher [employer] EDMS Zeus Pfeiffer RN RN jb4 Navjot Villanueva MD MD tw4 Corrections: (The following items were deleted from the chart) 03:06 01:40 09/09/2020 01:40 Discharged to Home. Impression: Breakdown (mechanical) of jb4 infusion catheter. Condition is Stable. Forms are Medication Reconciliation Form, Thank You Letter, Antibiotic Education, Prescription Opioid Use. Follow up: Private Physician; When: Upon discharge from the Emergency Department; Reason: Recheck today's complaints, Continuance of care, Re-evaluation by your physician. Problem is new. Symptoms have improved. tw4
--- NOTE | 2020-09-09 01:41 | ER ---
Nurse's Notes [facility] Name: Maryse Robins Age: 85 yrs Sex: Female : 1935 Arrival Date: 09/09/2020 Time: 00:13 Bed 7 Private MD: Diagnosis: Breakdown (mechanical) of infusion catheter Presentation: 09/09 00:24 Chief complaint: EMS states: Pt pulled out her midline and the intermediate staff is jb4 worried there is still some stuck inside. Coronavirus screen: Client denies travel out of the [place] in the last 14 days. Ebola Screen: Patient negative for fever greater than or equal to 101.5 degrees Fahrenheit, and additional compatible Ebola Virus Disease symptoms. Initial Sepsis Screen: Does the patient meet any 2 criteria? No. Patient's initial sepsis screen is negative. Does the patient have a suspected source of infection? No. Patient's initial sepsis screen is negative. Risk Assessment: Do you want to hurt yourself or someone else? Patient reports no desire to harm self or others. Onset of symptoms was September 09, 2020. Transition of care:. 00:24 Method Of Arrival: EMS: [facility] jb4 00:24 Acuity: LUC 3 jb4 Historical: - Allergies: 00:42 No Known Allergies; jb4 - Home Meds: 00:42 bisacodyl 10 mg Rectal supp 1 suppository once daily [Active]; divalproex 250 mg oral jb4 Tb24 [Active]; docusate sodium 100 mg Oral cap 1 cap 2 times per day [Active]; donepezil 5 mg oral tab 1 tab once daily [Active]; lactulose 20 gram/30 mL Oral soln 30 mL once daily [Active]; memantine 10 mg oral tab 1 tab 2 times per day [Active]; meropenem 500 mg intravenous solr every 8 hours [Active]; Milk of Magnesia 400 mg/5 mL Oral susp 30 mL every 8 hours [Active]; Nexium 40 mg Oral cpDR 1 cap once daily [Active]; Proctosol HC 2.5 % rectal crea every 8 hours [Active]; Remeron 15 mg Oral tab 1 tab once daily [Active]; acetaminophen-codeine 300-30 mg Oral tab 0.5 tabs twice a day [Active]; - PMHx: 00:42 Dementia; jb4 - PSHx: 00:42 knee replacement x2; jb4 - Immunization history:: Adult Immunizations up to date. - Social history:: Smoking status: unknown. Screenin:24 Abuse screen: Denies threats or abuse. Nutritional screening: No deficits noted. jb4 Tuberculosis screening: No symptoms or risk factors identified. Fall Risk None identified. Assessment: 00:24 General: Appears in no apparent distress. comfortable, Behavior is calm, cooperative. jb4 Pain: Unable to use pain scale. FLACC scale score is 0 out of 10. Neuro: Level of Consciousness is awake, alert, obeys commands, Oriented to person. Cardiovascular: Patient's skin is warm and dry. Respiratory: Airway is patent Respiratory effort is even, unlabored, Respiratory pattern is regular, symmetrical. GI: No signs and/or symptoms were reported involving the gastrointestinal system. : No signs and/or symptoms were reported regarding the genitourinary system. EENT: No signs and/or symptoms were reported regarding the EENT system. Derm: Skin is intact, Skin is pink, warm \T\ dry. Musculoskeletal: Circulation, motion, and sensation intact. Range of motion: intact in all extremities. 01:56 Reassessment: Patient appears in no apparent distress at this time. No changes from [facility] previously documented assessment. Patient and/or family updated on plan of care and expected duration. Pain level reassessed. 03:05 Reassessment: Patient appears in no apparent distress at this time. No changes from [facility] previously documented assessment. Patient and/or family updated on plan of care and expected duration. Pain level reassessed. Report Given to [facility]. Pt transferred pack to [facility] long term care care facility. Vital Signs: 00:24 BP 145 / 73; Pulse 87; Resp 18; Temp 98.0; Pulse Ox 100% on R/A; Weight 49.9 kg (R); jb4 Height 5 ft. 4 in. (162.56 cm) (R); Pain 0/10; 01:56 BP 135 / 65; Pulse 77; Resp 18; Pulse Ox 96% on R/A; jb4 00:24 Body Mass Index 18.88 (49.90 kg, 162.56 cm) jb4 ED Course: 00:13 Patient arrived in ED. mw2 00:17 Navjot Villanueva MD is Attending Physician. tw4 00:24 Patient has correct armband on for positive identification. Bed in low position. Call jb4 light in reach. Side rails up X 1. Pulse ox on. NIBP on. 00:30 Triage completed. jb4 00:42 Arm band placed on right wrist. jb4 00:51 Zeus Pfeiffer, RN is Primary Nurse. jb4 01:00 Humerus Left XRAY In Process Unspecified. EDMS 01:00 CXR XRAY In Process Unspecified. EDMS 03:05 No provider procedures requiring assistance completed. Patient did not have IV access jb4 during this emergency room visit. Administered Medications: No medications were administered Outcome: 01:40 Discharge ordered by . tw4 03:05 Discharged to intermediate. Report called to ALEXIA Calderon jb4 03:05 Condition: stable 03:05 Discharge instructions given to EMS, Instructed on the need for transfer, Demonstrated understanding of instructions. 03:06 Patient left the ED. jb4 Signatures: Dispatcher [employer] EDZeus Ochoa RN RN jb4 Navjot Villanueva MD MD tw4 Renan Espinoza mw2 Corrections: (The following items were deleted from the chart) 00:52 00:24 Neuro: Level of Consciousness is awake, alert, obeys commands, Oriented to jb4 person, place, time, situation, jb4
[2020-09-09 03:13] VITALS: TEMP 98
[2020-09-09 03:14] VITALS: BP 135/65; O2SAT 96
--- NOTE | 2020-09-09 09:46 | RAD REPORT ---
EXAM DESCRIPTION: Gayathri Single View09/09/2020 1:00 am CLINICAL HISTORY: Rule out foreign body catheter COMPARISON: 2012 FINDINGS: The lungs appear clear of acute infiltrate. The heart is normal size. A radiopaque foreign body is not visualized. If the area of interest is the upper abdomen then dedica marii plain films of the abdomen would be recommended including a lateral view
--- NOTE | 2020-09-09 09:53 | RAD REPORT ---
EXAM DESCRIPTION: RAD - Humerus Left - 09/09/2020 1:00 am CLINICAL HISTORY: Left arm pain FINDINGS: No fracture is seen. A radiopaque foreign body is not visualized. Marked osteoarthritis involves shoulder
== END 2020-09-09 03:06 | disposition home or self-care (01) ==
LOC: ER 00:11
DX: T82.514A Breakdown (mechanical) of infusion catheter, initial encounter (principal); F03.90 Unspecified dementia, unspecified severity, without behavioral disturbance, psychotic disturbance, mood disturbance, and anxiety
CPT/HCPCS: 71045; 99283

== ENCOUNTER 2020-09-22 22:37 | Emergency (ER) | payer OTHER ==
--- NOTE | 2020-09-23 03:32 | EDPHYS ---
Physician Documentation [facility] Name: Maryse Robins Age: 85 yrs Sex: Female : 1935 Arrival Date: 09/22/2020 Time: 22:38 Bed 17 Private MD: ED Physician Maco Holder HPI: 09/22 23:09 This 85 yrs old Female presents to ER via EMS with complaints of Fall Injury. [facility] 23:09 Onset: The symptoms/episode began/occurred acutely, today. Associated injuries: The [facility] patient sustained unknown. This is an 85 year old female with a history of dementia after an unwitnessed fall. Unsure on LOC. Denies pain. . Historical: - Home Meds: 23:49 acetaminophen-codeine 300-30 mg Oral tab 0.5 tabs twice a day [Active]; bisacodyl 10 mg zb Rectal supp 1 suppository once daily [Active]; divalproex 250 mg Oral Tb24 [Active]; docusate sodium 100 mg Oral cap 1 cap 2 times per day [Active]; donepezil 5 mg Oral tab 1 tab once daily [Active]; lactulose 20 gram/30 mL Oral soln 30 mL once daily [Active]; memantine 10 mg Oral tab 1 tab 2 times per day [Active]; meropenem 500 mg intravenous solr every 8 hours [Active]; Milk of Magnesia 400 mg/5 mL Oral susp 30 mL every 8 hours [Active]; Nexium 40 mg Oral cpDR 1 cap once daily [Active]; Proctosol HC 2.5 % rectal crea every 8 hours [Active]; Remeron 15 mg Oral tab 1 tab once daily [Active]; - PMHx: 23:49 Dementia; zb - PSHx: 23:49 knee replacement x2; zb - Immunization history:: Adult Immunizations up to date. - Social history:: Smoking status: unknown. - Immunization history: Last tetanus immunization: unknown. ROS: 23:09 Constitutional: Negative for fever, chills, and weight loss, Eyes: Negative for injury, jmm pain, redness, and discharge, ENT: Negative for injury, pain, and discharge, Neck: Negative for injury, pain, and swelling, Cardiovascular: Negative for chest pain, palpitations, and edema, Respiratory: Negative for shortness of breath, cough, wheezing, and pleuritic chest pain, Abdomen/GI: Negative for abdominal pain, nausea, vomiting, diarrhea, and constipation, Back: Negative for injury and pain, MS/Extremity: Negative for injury and deformity, Neuro: Negative for headache, weakness, numbness, tingling, and seizure. 23:09 All other systems are negative. Exam: 23:09 Constitutional: This is a well developed, well nourished patient who is awake, alert, jmm and in no acute distress. Head/Face: atraumatic. Eyes: EOMI, no conjunctival erythema appreciated ENT: Moist Mucus Membranes Neck: Trachea midline, Supple Chest/axilla: Normal chest wall appearance and motion. Cardiovascular: Regular rate and rhythm. No edema appreciated Respiratory: Normal respirations, no respiratory distress appreciated Abdomen/GI: Non distended, soft Back: Normal ROM Skin: General appearance color normal MS/ Extremity: Moves all extremities, no obvious deformities appreciated, no edema noted to the lower extremities 23:09 Neuro: Motor: is normal. 23:09 Psych: Behavior/mood is pleasant, cooperative. Vital Signs: 22:43 BP 143 / 79; Pulse 76; Resp 18; Temp 98.1(O); Pulse Ox 100% on R/A; Weight 49.9 kg; zb Height 5 ft. 0 in. (152.40 cm); 09/23 00:10 BP 141 / 75; Pulse 70; Resp 16; Pulse Ox 98% ; rr5 02:26 BP 146 / 71; Pulse 63; Resp 16; Pulse Ox 98% on R/A; ak2 03:37 BP 142 / 67; Pulse 73; Resp 18; Pulse Ox 98% on R/A; ak2 09/22 22:43 Body Mass Index 21.48 (49.90 kg, 152.40 cm) zb MDM: 09/22 23:09 Patient medically screened. [facility] 09/23 01:04 Transition of care: After a detail discussion of the patient's case, care is [facility] transferred to Maco Holder MD. 03:29 Differential diagnosis: abrasion, closed head injury, contusion, fracture, sprain. Data [facility] [place] reviewed: vital signs, nurses notes, EMS record, old medical records, radiologic studies, CT scan, plain films. Data interpreted: Pulse oximetry: on room air is 98 %. Interpretation: normal. Counseling: I had a detailed discussion with the patient and/or guardian regarding: the historical points, exam findings, and any diagnostic results supporting the discharge/admit diagnosis, the presence of at least one elevated blood pressure reading (>120/80) during this emergency department visit, radiology results, the need for outpatient follow up. Response to treatment: the patient's symptoms have resolved after treatment, the patient's blood pressure is in an acceptable range, mental status has returned to baseline, the patient no longer shows bradycardia, the patient is not short of breath, the patient is not tachycardic, the patient's pain is gone, the patient's temperature has normalized. 09/22 23:10 Order name: CT Head C Spine [facility] 09/22 23:10 Order name: Chest Single View XRAY [facility] 09/22 23:10 Order name: Pelvis XRAY [facility] Administered Medications: No medications were administered Disposition: 05:15 Co-signature as Attending Physician, Maco Holder MD. mh7 Disposition: 09/23/20 03:31 Discharged to Home. Impression: Fall due to bumping against object. - Condition is Stable. - Discharge Instructions: Fall Prevention in the Home, [id number]. - Medication Reconciliation Form, Thank You Letter, Antibiotic Education, Prescription Opioid Use form. - Follow up: Private Physician; When: 1 - 2 days; Reason: Worsening of condition, Recheck today's complaints, Continuance of care, Re-evaluation by your physician. - Problem is new. - Symptoms have improved. Signatures: Dispatcher [employer] EDMS Mario Davenport PA PA jmm Holmes, Maurice, MD MD 7 Marli Whittaker RN RN Jose Garcia Corrections: (The following items were deleted from the chart) 03:37 03:31 09/23/2020 03:31 Discharged to Home. Impression: Fall due to bumping against ak2 object. Condition is Stable. Forms are Medication Reconciliation Form, Thank You Letter, Antibiotic Education, Prescription Opioid Use. Follow up: Private Physician; When: 1 - 2 days; Reason: Worsening of condition, Recheck today's complaints, Continuance of care, Re-evaluation by your physician. Problem is new. Symptoms have improved. mh7
--- NOTE | 2020-09-23 03:32 | ER ---
Nurse's Notes [facility] Name: Maryse Robins Age: 85 yrs Sex: Female : 1935 Arrival Date: 09/22/2020 Time: 22:38 Bed 17 Private MD: Diagnosis: Fall due to bumping against object Presentation: 09/22 22:43 Chief complaint: EMS states: pt coming from [facility] around 1600 patient had an zb unwitnessed fall. Around 1800 patient slided herself from the chair to the floor stating that she was tired. EMS denies known LOC or trauma. Patient c/o. Coronavirus screen: At this time, the client does not indicate any symptoms associated with coronavirus-19. Ebola Screen: No symptoms or risks identified at this time. Initial Sepsis Screen: Does the patient meet any 2 criteria? No. Patient's initial sepsis screen is negative. Does the patient have a suspected source of infection? No. Patient's initial sepsis screen is negative. Risk Assessment: Do you want to hurt yourself or someone else? Patient reports no desire to harm self or others. 22:43 Acuity: LUC 3 zb 22:43 Method Of Arrival: EMS: [facility] zb 23:52 Onset of symptoms was September 22, 2020. zb Triage Assessment: 23:00 General: Appears in no apparent distress. uncomfortable, Behavior is calm, cooperative, zb appropriate for age. Pain: Complains of pain in right leg and left leg Unable to use pain scale. Does not appear to understand pain scale. Neuro: Level of Consciousness is awake, alert, obeys commands, Oriented to person, place. Cardiovascular: Patient's skin is warm and dry. Respiratory: Airway is patent. Derm: Skin is intact, is fragile, is thin. Musculoskeletal: Range of motion: intact in all extremities. Historical: - Home Meds: 23:49 acetaminophen-codeine 300-30 mg Oral tab 0.5 tabs twice a day [Active]; bisacodyl 10 mg zb Rectal supp 1 suppository once daily [Active]; divalproex 250 mg Oral Tb24 [Active]; docusate sodium 100 mg Oral cap 1 cap 2 times per day [Active]; donepezil 5 mg Oral tab 1 tab once daily [Active]; lactulose 20 gram/30 mL Oral soln 30 mL once daily [Active]; memantine 10 mg Oral tab 1 tab 2 times per day [Active]; meropenem 500 mg intravenous solr every 8 hours [Active]; Milk of Magnesia 400 mg/5 mL Oral susp 30 mL every 8 hours [Active]; Nexium 40 mg Oral cpDR 1 cap once daily [Active]; Proctosol HC 2.5 % rectal crea every 8 hours [Active]; Remeron 15 mg Oral tab 1 tab once daily [Active]; - PMHx: 23:49 Dementia; zb - PSHx: 23:49 knee replacement x2; zb - Immunization history:: Adult Immunizations up to date. - Social history:: Smoking status: unknown. - Immunization history: Last tetanus immunization: unknown. Screenin:51 Abuse screen: Denies threats or abuse. Denies injuries from another. Nutritional zb screening: No deficits noted. Tuberculosis screening: No symptoms or risk factors identified. Fall Risk Fall in past 12 months (25 points). Secondary diagnosis (15 points) Alzheimer's, dementia, No IV (0 pts). Ambulatory Aid- Crutches/Cane/Walker (15 pts). Gait- Weak (10 pts.). Mental Status- Overestimates/Forgets Limitations (15 pts.). Total Valencia Fall Scale indicates High Risk Score (45 or more points). Fall prevention measures have been instituted. Side Rails Up X 2 Placed Close to Nursing Station Frequent Obs/Assessments Occuring As available patient and family educated on Fall Prevention Program and Strategies. Assessment: 23:00 Reassessment: see triage assessment. zb 09/23 00:10 Reassessment: Patient appears in no apparent distress at this time. awaiting for rr5 results. 02:26 Reassessment: Patient and/or family updated on plan of care and expected duration. Pain ak2 level reassessed. Vital Signs: 09/22 22:43 BP 143 / 79; Pulse 76; Resp 18; Temp 98.1(O); Pulse Ox 100% on R/A; Weight 49.9 kg; zb Height 5 ft. 0 in. (152.40 cm); 09/23 00:10 BP 141 / 75; Pulse 70; Resp 16; Pulse Ox 98% ; rr5 02:26 BP 146 / 71; Pulse 63; Resp 16; Pulse Ox 98% on R/A; ak2 03:37 BP 142 / 67; Pulse 73; Resp 18; Pulse Ox 98% on R/A; ak2 09/22 22:43 Body Mass Index 21.48 (49.90 kg, 152.40 cm) ED Course: 09/22 22:38 Patient arrived in ED. cf2 22:43 Marli Whittaker, RN is Primary Nurse. zb 22:47 Triage completed. zb 22:53 Mario Davenport PA is PHCP. [facility] 22:53 Maco Holder MD is Attending Physician. m 23:51 Patient maintains SpO2 saturation greater than 95% on room air. zb 23:51 Patient has correct armband on for positive identification. Placed in gown. Bed in low zb position. Call light in reach. Pulse ox on. NIBP on. Door closed. Noise minimized. 23:52 Chest Single View XRAY In Process Unspecified. EDMS 23:52 Pelvis XRAY In Process Unspecified. EDMS 23:54 Arm band placed on. zb 09/23 00:25 CT Head C Spine In Process Unspecified. EDMS 03:36 No provider procedures requiring assistance completed. Patient did not have IV access ak2 during this emergency room visit. Administered Medications: No medications were administered Outcome: 03:31 Discharge ordered by . alex 03:37 Discharged to senior living. Report called to RN ak2 03:37 Condition: good 03:37 Discharge instructions given to EMS. 03:37 Patient left the ED. ak2 Signatures: Dispatcher [employer] EDMS Mario Davenport PA PA Cosmo Gonzalez, RN RN rr5 Gilbert Dang 2 Maco Holder MD MD Marli Dykes RN RN zb [place], Anthony ak2
[2020-09-23 03:42] VITALS: TEMP 98.1
[2020-09-23 03:43] VITALS: O2SAT 98
[2020-09-23 03:47] VITALS: BP 142/67
--- NOTE | 2020-09-23 22:14 | RAD REPORT ---
EXAM DESCRIPTION: CT - CTHCSPWOC - 09/23/2020 6:42 am CLINICAL HISTORY: The patient is 85 years old and is Female; fall TECHNIQUE: Axial computed tomography images of the head/brain and cervical spine without intravenous contrast. Sagittal and coronal reformatted images were created and reviewed. This CT exam was pe rformed using one or more of the following dose reduction techniques: automated exposure control, a djustment of the mA and/or kV according to patient size, and/or use of iterative reconstruction techn ique. COMPARISON: No relevant prior studies available. FINDINGS: Brain: Moderate nonspecific white matter changes likely related to chronic microvascular ischemic disease. Moderate cerebral atrophy. No hemorrhage. Ventricles: Unremarkable. No ventriculomegaly. Skull: Osteopenia. No acute fracture. Sinuses: Unremarkable as visualized. No acute sinusitis. Mastoid air cells: Unremarkable as visualized. No mastoid effusion. Vertebrae: No acute cervical spine fracture or subluxation. Osteopenia limiting evaluation. Kyphosis of the lower cervical spine. 6 mm of anterolisthesis of C5 on C6. Discs/spinal canal/neural foramina: Disc space narrowing with degenerative endplate changes from C5-6 through T1-2. Partial fusion at C5-C6. Degenerative changes at the atlantodental articulation. Soft tissues: Unremarkable. Thyroid: Heterogeneous right thyroid. Lung apices: Suggestion of pleural calcification in the lung apices. IMPRESSION: 1. No acute intracranial abnormality. 2. No acute cervical spine fracture or subluxation. 3. Heterogeneous right thyroid. Consider thyroid ultrasound for further evaluation if clinically indicated. Electronically signed by: Felipe Gerardo MD 09/23/2020 1:24 AM CDT Due to temporary technical issues with the PACS/Fluency reporting system, reports are being signed by the in house radiologists without review as a courtesy to insure prompt reporting. The interpreting radiologist is fully responsible for the content of the report.
--- NOTE | 2020-09-23 22:18 | RAD REPORT ---
EXAM DESCRIPTION: RAD - Chest Single View - 09/22/2020 11:54 pm CLINICAL HISTORY: Fall, vrad. COMPARISON: None. TECHNIQUE: Single view AP chest radiograph(s). FINDINGS: Moderate to severe diffuse pulmonary interstitial thickening. No infiltrate. No pleural ef fusion. No pneumothorax. Nonenlarged cardiomediastinal silhouette. Osteopenia. Moderate thoracolumbar scoliosis, with convex to the right curvature. Advanced left glenohumeral osteoarthrosis. Mild buckl ing of the lateral left ninth rib. IMPRESSION: 1. Mild buckling of the lateral left ninth rib, uncertain acuity. Correlate for point tenderness. 2. No pneumothorax. 3. Moderate to severe pulmonary interstitial thickening. Correlate for pulmonary fibrosis. Electronically signed by: Loren Swann MD 09/23/2020 12:18 AM CDT Due to temporary technical issues with the PACS/Fluency reporting system, reports are being signed by the in house radiologists without review as a courtesy to insure prompt reporting. The interpreting radiologist is fully responsible for the content of the report
--- NOTE | 2020-09-23 22:21 | RAD REPORT ---
EXAM DESCRIPTION: RAD - Pelvis - 09/22/2020 11:52 pm CLINICAL HISTORY: Fall, vrad. COMPARISON: None. TECHNIQUE: Single view AP pelvic radiograph. FINDINGS: Osteopenia. Fracture deformities of the right superior and inferior pubic rami appear dragger prabhakar. No definite acute osseous abnormality is identified. Bilateral hip joint alignment is maintained . Minimal bilateral sacroiliac osteoarthrosis. Lower lumbar spine degenerative changes. Unremarkable appearance of the surrounding soft tissues. IMPRESSION: 1. Chronic appearing fracture deformities of the right superior and inferior pubic dipti i appear chronic. 2. No definite acute osseous abnormality identified. 3. Osteopenia. Electronically signed by: Loren Swann MD 09/23/2020 12:20 AM CDT Due to temporary technical issues with the PACS/Fluency reporting system, reports are being signed by the in house radiologists without review as a courtesy to insure prompt reporting. The interpreting radiologist is fully responsible for the content of the report
== END 2020-09-23 03:37 | disposition home or self-care (01) ==
LOC: ER 22:37
DX: Z04.3 Encounter for examination and observation following other accident (principal); W18.00XA Striking against unspecified object with subsequent fall, initial encounter
CPT/HCPCS: 70450; 71045; 72125; 72170

== ENCOUNTER 2022-12-03 15:30 | Inpatient (IN) | payer OTHER ==
[2022-12-03 16:01] LABS: Arterial Blood Carboxyhemoglob 0.2 % (0-1.5); Blood Gas Oxyhemoglobin 95.5 % (94-97); Blood O2 Saturation 97.3 % (92-98.5)
--- NOTE | 2022-12-03 16:13 | RAD REPORT ---
EXAM DESCRIPTION: Gayathri Single View12/03/2022 3:50 pm CLINICAL HISTORY: cough COMPARISON: 2020 FINDINGS: The lungs appear clear of acute infiltrate. The heart is normal size IMPRESSION: No acute abnormalities displayed
[2022-12-03] MEDS ORDERED: ONDANSETRON 4 MG/2 ML VIAL ONE (16:20)
[2022-12-03 16:33] LABS: Hematocrit 30.1 % (36.0-45.0); Lymphocytes % 12.9 % (15.3-44.8); MCV 85.7 fL (80-100); Platelets 269 thou/uL (152-406); RBC Red Blood Cell Count 3.51 M/uL (3.86-4.86)
[2022-12-03 16:37] LABS: Protime INR 1.06
[2022-12-03] MEDS ORDERED: NA CHLORIDE 0.9% 250 ML ONE (16:39)
[2022-12-03 16:53] LABS: Albumin 2.9 g/dL (3.4-5.0); Bilirubin Total 0.2 mg/dL (0.2-1.0); Potassium 3.2 mEq/L (3.5-5.1); Protein, Total 6.4 g/dL (6.4-8.2)
[2022-12-03] MEDS ORDERED: NA CHLORIDE 0.9% 100 ML ONE (17:00)
[2022-12-03] MEDS ORDERED: VANCOMYCIN 500 MG/VIAL ONE (17:00)
[2022-12-03] MEDS ORDERED: CEFEPIME 1 GM/VIAL ONE (17:01)
[2022-12-03 17:02] LABS: Arterial Blood Carboxyhemoglob 0.5 % (0-1.5); Blood Gas Oxyhemoglobin 91.3 % (94-97); Blood O2 Saturation 93.3 % (92-98.5)
[2022-12-03 17:24] LABS: Specific Gravity 1.016 (1.005-1.030); Urine Bacteria <20 /HPF (<20); Urine Bilirubin NEGATIVE (Negative); Urine Blood Negative (Negative); Urine Clarity Turbid (Clear); Urine Color Light-Yellow (Yellow); Urine Glucose 4+ (Over) (Negative); Urine Mucus Slight /HPF (None Seen); Urine Protein 1+ (Negative); Urine Urobilinogen Normal (Normal); Urine pH 5.5 (5.0-7.0)
--- NOTE | 2022-12-03 18:27 | EDPHYS ---
Physician Documentation [facility] Name: Maryse Robins Age: 87 yrs Sex: Female : 1935 Arrival Date: 12/03/2022 Time: 15:30 Bed 2 Private MD: ED Physician Michelle Powell HPI: 12/03 16:32 This 87 yrs old Unknown Female presents to ER via EMS with complaints of Difficulty sp3 breathing. 16:32 87-year-old female with history of dementia, hyperlipidemia, prior myocardial sp3 [facility] presents via EMS for chief complaint difficulty breathing and altered mental status. EMS arrived to find patient at 79% on room air struggling to breathe. They did not initiate any advanced airway secondary to being close distance to the ED arriving several minutes later here. Upon arrival here patient had immediate BiPAP application. Please see MDM for further documentation of said critical care. History, physical and ROS otherwise severely limited secondary to dementia and patient being nonverbal. No other pertinent history from EMS other than that she is on aspirin.. Historical: - Allergies: 16:01 No Known Allergies; nj1 - PMHx: 16:01 Myocardial infarction; Dysphagia; Dementia; GERD; Hypercholesterolemia; Depressive nj1 disorder; Coronary atherosclerosis; Convulsions; - Immunization history:: Adult Immunizations unknown. - Social history:: Smoking status: unknown. ROS: 16:33 Unable to obtain ROS due to baseline dementia. sp3 Exam: 16:33 Head/Face: Normocephalic, atraumatic. Eyes: Pupils equal round and reactive to light, sp3 extra-ocular motions intact. Lids and lashes normal. Conjunctiva and sclera are non-icteric and not injected. Cornea within normal limits. Periorbital areas with no swelling, redness, or edema. Neck: Trachea midline, no thyromegaly or masses palpated, and no cervical lymphadenopathy. Supple, full range of motion without nuchal rigidity, or vertebral point tenderness. No Meningismus. Chest/axilla: Normal chest wall appearance and motion. Nontender with no deformity. No lesions are appreciated. Cardiovascular: Regular rate and rhythm with a normal S1 and S2. No gallops, murmurs, or rubs. Normal PMI, no JVD. No pulse deficits. Abdomen/GI: Soft, non-tender, with normal bowel sounds. No distension or tympany. No guarding or rebound. No evidence of tenderness throughout. 16:33 Constitutional: The patient appears 10 Sandoval was placed and after normalization her temperature was read to be 93.6. 16:33 Respiratory: Patient with Rales/rhonchi bilaterally. Pulse ox was 98% on 15 L upon arrival with patient breathing at 24 to 28 breaths/min. Subsequent to BiPAP application, sats remained at 99% with work of breathing decreased and respiratory rate in the 16-20 range.. 16:36 ECG was reviewed by the Attending Physician. EKG demonstrates normal sinus rhythm at 91 sp3 bpm with first-degree AV block with AK interval of 266, normal axis, normal QRS, nonspecific diffuse ST/T changes without evidence of acute ischemia. Vital Signs: 15:39 BP 178 / 83; Pulse 95; Resp 25; Pulse Ox 99% on Non RB at 15 LPM; Weight 38 kg (M); nj1 Height 4 ft. 10 in. ; 16:00 BP 173 / 87; Pulse 90; Resp 21; Temp 93.5(Ca); Pulse Ox 99% on BiPAP; nj1 17:00 BP 155 / 74; Pulse 85; Resp 18; Temp 93.3(Ca); Pulse Ox 99% on BiPAP; nj1 17:00 Temp 93.6(A); nj1 17:49 BP 158 / 73; Pulse 90; Resp 21; Temp 94(Ca); Pulse Ox 97% on BiPAP; nj1 18:38 BP 158 / 81; Pulse 89; Resp 23; Temp 94.6(Ca); Pulse Ox 97% on BiPAP; nj1 19:11 BP 146 / 73; Pulse 89; Resp 20; Temp 95.2(Ca); Pulse Ox 98% on BiPAP; nj1 21:56 BP 147 / 82; Pulse 87; Resp 25; Temp 97.6; Pulse Ox 99% ; bp 15:39 Body Mass Index 17.51 (38.00 kg, 147.32 cm) nj1 MDM: 15:38 Patient medically screened. sp3 16:34 Data reviewed: vital signs, nurses notes, EMS record, old medical records, lab test sp3 result(s), EKG, radiologic studies. ED course: 87-year-old female with PMH above now with likely aspiration versus bacterial pneumonia with also viral/COVID possibility. Initial blood gas was 7.11/65/146. BiPAP was initiated and repeat gas will be obtained. Initial lactate was 3.5 and IV fluids have already been initiated. Bear hugger has been applied secondary to hypothermia via temperature Sandoval. We will validate this temperature with alternate means to ensure accuracy. Remainder of labs are pending. Antibiotics will be started and admission decision will be made to keep her at this hospital versus transfer based on remainder of work-up and patient course and repeat ABG. Patient remains full code we will attempt to contact family.. 18:24 ED course: We will transfer patient secondary to not improving blood gas and lack of sp3 solar sales specialist here. Vital signs remained stable other than hypothermia.. 19:04 ED course: Family was able to be reached by the nursing staff. I spoke to the sp3 granddaughter who is in route to the hospital here with a plan to make patient a DNR and withdraw care with comfort measures only. We will help arrange that from here with in-hospital hospice. I will discuss with hospitalist service at this time.. 12/03 15:37 Order name: Blood Culture Adult (2) sp3 12/03 15:37 Order name: CBC with Diff; Complete Time: 17:04 sp3 12/03 15:37 Order name: CMP; Complete Time: 17:04 sp3 12/03 15:37 Order name: Lactate w/ 2H reflex if indic.; Complete Time: 16:19 sp3 12/03 15:37 Order name: Protime (+inr); Complete Time: 17:04 sp3 12/03 15:37 Order name: Urinalysis w/ reflexes; Complete Time: 17:24 sp3 12/03 15:37 Order name: ABG; Complete Time: 16:19 sp3 12/03 15:37 Order name: Troponin High Sensitivity; Complete Time: 17:04 sp3 12/03 15:38 Order name: Procalcitonin; Complete Time: 18:14 sp3 12/03 16:37 Order name: SARS-COV-2 RT PCR; Complete Time: 17:58 sp3 12/03 16:37 Order name: Flu; Complete Time: 17:30 sp3 12/03 16:53 Order name: ABG; Complete Time: 17:04 sp3 12/03 15:37 Order name: Chest Single View XRAY; Complete Time: 16:19 sp3 12/03 15:37 Order name: EKG; Complete Time: 15:38 sp3 12/03 15:37 Order name: Accucheck; Complete Time: 19:01 sp3 12/03 15:37 Order name: Cardiac monitoring; Complete Time: 15:39 sp3 12/03 15:37 Order name: EKG - Nurse/Tech; Complete Time: 15:39 sp3 12/03 15:37 Order name: IV Saline Lock - Large Bore; Complete Time: 15:45 sp3 12/03 15:37 Order name: Labs collected and sent; Complete Time: 15:44 sp3 12/03 15:37 Order name: O2 Per Protocol; Complete Time: 15:39 sp3 12/03 15:37 Order name: O2 Sat Monitoring; Complete Time: 15:39 sp3 12/03 15:37 Order name: Vital Signs; Complete Time: 15:39 sp3 12/03 15:37 Order name: Sandoval; Complete Time: 15:57 sp3 12/03 16:37 Order name: Virginia Farrell; Complete Time: 16:44 sp3 Administered Medications: 15:27 Drug: NS 0.9% IV (30 ml/kg) 30 ml/kg {Note: Initiated by EMS, ok to continue per Dr jadiel Powell.} Route: IV; Rate: bolus; Site: left hand; 16:45 Follow up: IV Status: Completed infusion; IV Intake: 1150ml nj1 16:10 Drug: Ondansetron IVP 4 mg Route: IVP; Site: right forearm; [facility] 16:34 Follow up: Response: No adverse reaction nj1 17:00 Drug: Cefepime IVPB 1 grams Route: IVPB; Rate: 200 ml/hr; Infused Over: 30 mins; Site: [facility] right forearm; 17:28 Follow up: Response: No adverse reaction; IV Status: Completed infusion; IV Intake: nj1 100ml 17:28 Drug: vancoMYCIN IVPB 500 mg Route: IVPB; Infused Over: 1 hrs; Site: right forearm; nj1 22:09 Follow up: IV Status: Completed infusion; IV Intake: 250ml bp Disposition Summary: 12/03/22 19:51 Hospitalization Ordered Hospitalization Status: Inpatient Admission sp3 Provider: Cosmo Andrade sp3 Location: Telemetry/MedSurg (Inpatient) sp3 Condition: Guarded(12/03/22 19:51) sp3 Problem: new(12/03/22 19:51) sp3 Symptoms: have worsened(12/03/22 19:51) sp3 Bed/Room Type: Standard sp3 Room Assignment: 411(12/03/22 21:37) cg Diagnosis - Respiratory failure, aspiration pneumonia, hypoperfusion, dehydration, critical sp3 respiratory acidosis Forms: - Medication Reconciliation Form sp3 - SBAR form sp3 - Leadership Thank You Letter sp3 Signatures: Dispatcher [employer] Rosie Black, RN RN cg Michelle Powell MD MD sp3 Mayra Nur RN RN nj1 Joshua Lopez RN bp Corrections: (The following items were deleted from the chart) 15:58 15:37 Rectal Temp ordered. sp3 nj1 19:10 18:26 [facility] sp3 sp3 19:10 18:26 [facility] sp3 sp3 19:10 18:26 Higher level of care sp3 sp3 19:10 18:26 Fair sp3 sp3 19:10 18:26 an acute exacerbation sp3 sp3 19:10 18:26 have worsened sp3 sp3 19:10 18:26 Aspiration pneumonia, sepsis, hypothermia sp3 sp3 21:37 19:51 sp3 cg
--- NOTE | 2022-12-03 18:27 | ER ---
Nurse's Notes [facility] Name: Maryse Robins Age: 87 yrs Sex: Female : 1935 Arrival Date: 12/03/2022 Time: 15:30 Bed 2 Private MD: Diagnosis: Respiratory failure, aspiration pneumonia, hypoperfusion, dehydration, critical respiratory acidosis Presentation: 12/03 15:39 Chief complaint: EMS states: ID states that patient aspirated since she vomited while nj1 they were changing her (while laying flat). Trouble breathing since then, 79% on room air. Initial Sepsis Screen: Does the patient meet any 2 criteria? RR > 20 per min. 15:39 Method Of Arrival: EMS: [facility] 15:39 Acuity: LUC 2 [facility] 15:39 Onset of symptoms was December 03, 2022. [facility] 15:45 Ebola Screen: Patient denies travel to an Ebola-affected area in the 21 days before [facility] illness onset. Risk Assessment: Do you want to hurt yourself or someone else? Unable to obtain. 15:58 Coronavirus screen: Client denies travel out of the [place] in the last 14 days. [facility] difficulty breathing, Unknown if COVID vaccination given. Initial Sepsis Screen: Does the patient meet any 2 criteria? Temp <36.0*C (96.8*F)) or > 38.3*C (100.9*F). HR > 90 bpm. Yes Does the patient have a suspected source of infection? Yes: Other: Aspiration. Triage Assessment: 17:24 General: Behavior is. [facility] Historical: - Allergies: 16:01 No Known Allergies; nj1 - PMHx: 16:01 Myocardial infarction; Dysphagia; Dementia; GERD; Hypercholesterolemia; Depressive nj1 disorder; Coronary atherosclerosis; Convulsions; - Immunization history:: Adult Immunizations unknown. - Social history:: Smoking status: unknown. Screenin:23 [facility] ED Fall Risk Assessment (Adult) Score/Fall Risk Level 0 - 2 = Low Risk [facility] Maintained a safe environment, Hourly rounding (assess needs \T\ fall precautionary measures) done. Abuse screen: Denies threats or abuse. Denies injuries from another. Nutritional screening: No deficits noted. Tuberculosis screening: No symptoms or risk factors identified. Assessment: 15:30 General: Appears distressed. Pain: Unable to use pain scale. nj1 15:30 Neuro: Level of Consciousness is awake, alert. Cardiovascular: Patient's skin is warm nj1 and dry. Respiratory: Airway is patent Respiratory effort is labored, Respiratory pattern is tachypnea Breath sounds are coarse. 16:16 Reassessment: Lab called for a need to recollect blood work, phlebotomy notified to aa5 come and collect. . 16:30 Reassessment: Patient appears in no apparent distress at this time. nj1 16:30 Respiratory: Respiratory pattern is regular. nj1 17:35 Reassessment: No changes from previously documented assessment. nj1 18:38 Reassessment: No changes from previously documented assessment. nj1 19:00 Reassessment: This RN calls patient primary contact, Saba Robins ([facility]) as nj1 stated in senior living paperwork. Granddaughter unaware of patient being in hospital, states she did not get a call from the senior living. This RN provides some information, states patient is supposed to be a DNR but have not gotten the paperwork yet. Dr Powell requesting to speak with her, this RN transfers phone call to him. 19:00 Reassessment: REPORT FROM JOAQUIM HALE. PER FAMILY, PT IS DNR/DNI, INTUBATION AND TRANSFER bp DEFERRED. MPOA AT B/S. 19:52 Reassessment: PT TO BE ADMITTED FOR IN HOUSE HOSPICE. PER FAMILY, PT TO BE ALLOWED A bp NATURAL . 21:55 Reassessment: ADMIT COMPLETE FOR RM 411. bp Vital Signs: 15:39 BP 178 / 83; Pulse 95; Resp 25; Pulse Ox 99% on Non RB at 15 LPM; Weight 38 kg (M); nj1 Height 4 ft. 10 in. ; 16:00 BP 173 / 87; Pulse 90; Resp 21; Temp 93.5(Ca); Pulse Ox 99% on BiPAP; nj1 17:00 BP 155 / 74; Pulse 85; Resp 18; Temp 93.3(Ca); Pulse Ox 99% on BiPAP; nj1 17:00 Temp 93.6(A); nj1 17:49 BP 158 / 73; Pulse 90; Resp 21; Temp 94(Ca); Pulse Ox 97% on BiPAP; nj1 18:38 BP 158 / 81; Pulse 89; Resp 23; Temp 94.6(Ca); Pulse Ox 97% on BiPAP; nj1 19:11 BP 146 / 73; Pulse 89; Resp 20; Temp 95.2(Ca); Pulse Ox 98% on BiPAP; nj1 21:56 BP 147 / 82; Pulse 87; Resp 25; Temp 97.6; Pulse Ox 99% ; bp 15:39 Body Mass Index 17.51 (38.00 kg, 147.32 cm) nj1 ED Course: 15:30 Patient has correct armband on for positive identification. Placed in gown. Bed in low nj1 position. Call light in reach. Side rails up X 1. 15:30 Provided Education on: unable to perform dt clinical presentation as well as cognitive nj1 status. 15:33 Patient arrived in ED. aa5 15:35 Michelle Powell MD is Attending Physician. sp3 15:38 Joaquim Nur RN is Primary Nurse. nj1 15:40 First set of blood cultures drawn by me. aa5 15:40 Initial lab(s) drawn, by me, sent to lab. aa5 15:42 Triage completed. nj1 15:42 Inserted saline lock: 20 gauge in right forearm, using aseptic technique. aa5 15:51 Chest Single View XRAY In Process Unspecified. EDMS 15:55 Sandoval cath inserted, using sterile technique, 16 Fr., by pr, balloon inflated, to nj1 gravity drainage, Patient tolerated well. 16:00 Second set of blood cultures drawn by me, Skin tear was sustained to left forearm while aa5 scrubbing with Chloraprep for blood culture collection, skin is thin and fragile. Skin tear dressed with non-adherent dressing and Coban. Dark purple bruising was developed rapidly to left forearm and pressure was applied with Coban. was notified. 16:14 Arm band placed on left wrist. nj1 16:14 Maintain EMS IV. Dressing intact. Good blood return noted. Site clean \T\ dry. Gauge \T\ nj 1 site: 20g L hand. 16:30 Thermoregulation: [place] blanket applied. nj1 18:26 called [facility] for Transfer-- talked to John. sp 19:05 Report given to Joshua Jalloh RN. nj1 19:50 Cosmo Andrade MD is Hospitalizing Provider. sp3 22:08 No provider procedures requiring assistance completed. Patient admitted, IV remains in bp place. Administered Medications: 15:27 Drug: NS 0.9% IV (30 ml/kg) 30 ml/kg {Note: Initiated by EMS, ok to continue per Dr jadiel Powell.} Route: IV; Rate: bolus; Site: left hand; 16:45 Follow up: IV Status: Completed infusion; IV Intake: 1150ml nj1 16:10 Drug: Ondansetron IVP 4 mg Route: IVP; Site: right forearm; nj1 16:34 Follow up: Response: No adverse reaction nj1 17:00 Drug: Cefepime IVPB 1 grams Route: IVPB; Rate: 200 ml/hr; Infused Over: 30 mins; Site: [facility] right forearm; 17:28 Follow up: Response: No adverse reaction; IV Status: Completed infusion; IV Intake: nj1 100ml 17:28 Drug: vancoMYCIN IVPB 500 mg Route: IVPB; Infused Over: 1 hrs; Site: right forearm; nj1 22:09 Follow up: IV Status: Completed infusion; IV Intake: 250ml bp Medication: 17:24 VIS not applicable for this client. nj1 Intake: 16:45 IV: 1150ml; Total: 1150ml. nj1 17:28 IV: 100ml; Total: 1250ml. nj1 22:09 IV: 250ml; Total: 1500ml. bp Outcome: 18:26 ER care complete, transfer ordered by . sp3 19:51 Decision to Hospitalize by Provider. sp3 22:08 Admitted to Med/surg accompanied by tech, family with patient, via stretcher, room 411, bp with oxygen, with chart, Report called to AYDE HALE 22:08 Condition: stable 22:08 Instructed on the need for admit. 22:09 Patient left the ED. bp Signatures: Dispatcher [employer] EDMS Apoorva Curry Audri, RN RN aa5 Joshua Lopez RN RN bp Michelle Powell MD MD sp3 Joaquim Nur RN RN nj1 Corrections: (The following items were deleted from the chart) 15:44 15:39 BP 178 / 83; Pulse 95bpm; Resp 25bpm; Pulse Ox 99% Non RB at 15 LPM; 38 kg nj1 Measured; Height 4 ft. 10 in.; BMI: 17.5; nj1 16:20 16:00 Second set of blood cultures drawn by ana bonilla
[2022-12-03] MEDS ORDERED: RSI MEDICATION KIT IV ONE (19:09)
--- NOTE | 2022-12-03 20:55 | P.HP ---
Certification for Inpatient Patient admitted to: Inpatient With expected LOS: >2 Midnights Patient will require the following post-hospital care: None Practitioner: I am a practitioner with admitting privileges, knowledge of patient current condition, hospital course, and medical plan of care. Services: Services provided to patient in accordance with Admission requirements found in Title 42 Section 412.3 of the Code of Federal Regulations Patient History Date of Service: 12/03/22 Reason for admission: Respiratory failure History of Present Illness: 87-year-old female with history of dementia, CHF, CAD, GERD, hyperlipidemia who stays at [facility] for the last 3 years presents emergency department with shortness of breath. Per retirement staff she was lying flat on her back when she vomited and subsequently aspirated causing her to be short of breath. Upon arrival to the emergency department patient was placed on nonrebreather, she ended up requiring BiPAP, ABG was obtained which showed initial pH of 7.11 and PCO2 65.2. Repeat ABG was obtained about an hour later pH of 7.14 PCO2 of 60.5, initially on nursing paper patient was full code for that reason transfer was initiated this was not have lay up operator/pulmonology available patient will require ICU level of care and possible intubation. After discussion with lay up operator from [facility] recommendation for intubation was noted for ED physician. Before intubation nursing staff was unable to get hold of patient and next of kin/BRICE Walter granddaughter in law who stated they are working on having a DNR from place and she would not want to be placed on a ventilator or any circumstances. Given he came to bedside and reported patient would not want any of these aggressive measures, wants her admitted with comfort measures only. Arrangement for likely inpatient hospice. Allergies codeine Allergy (Intermediate, Verified 07/08/11 15:05) Rash Home Medications: Melatonin 20 mg PO BEDTIME 07/04/11 Cetirizine HCl [Zyrtec*] 1 tab PO DAILY 05/31/18 - Past Medical/Surgical History Diabetic: No -: dementia -: CHF -: CAD -: GERD -: HLD -: knee replacement Psychosocial/ Personal History: Lives at [facility] - Family History Family History: Reviewed- Non-Contributory - Social History Smoking Status: Never smoker Alcohol use: Yes CD- Drugs: No Caffeine use: Yes Place of Residence: Home Review of Systems is unable to be obtained Physical Examination - Vital Signs Pulse: 88 Pulse Ox (%): 98 - Physical Exam General: Alert, In no apparent distress, Oriented x1 HEENT: Atraumatic, PERRLA, Mucous membr. moist/pink, EOMI, Sclerae nonicteric Neck: Supple, 2+ carotid pulse no bruit, No LAD, Without JVD or thyroid abnormality Respiratory: Diminished, Other (Moderate resp distress on bipap) Cardiovascular: No edema, Regular rate/rhythm, Normal S1 S2 Capillary refill: <2 Seconds Gastrointestinal: Normal bowel sounds, No tenderness Musculoskeletal: No tenderness Integumentary: No rashes Neurological: Normal speech, Normal strength at 5/5 x4 extr, Normal tone, Normal affect - Studies Laboratory Data (last 24 hrs) 12/03/22 12/03/22 12/03/22 16:23 16:23 16:23 WBC 15.70 H Hgb 9.5 L Hct 30.1 L Plt Count 269 PT 11.7 INR 1.06 Sodium 145 Potassium 3.2 L BUN 25 H Creatinine 1.13 H Glucose 374 H Total Bilirubin 0.2 AST 26 ALT 25 Alkaline Phosphatase 89 Microbiology Data (last 24 hrs): 12/03/22 17:00 Nasopharnyx Influenza Type A Antigen Screen - Final 12/03/22 17:00 Nasopharnyx Influenza Type B Antigen Screen - Final Assessment and Plan - Plan Assessment: Acute hypercapnic respiratory failure secondary to aspiration pneumonia Severe sepsis secondary to aspiration pneumonia Dementia Chronic diastolic congestive heart failure Hypertension Hyperlipidemia GERD Plan: Acute hypercapnic respiratory failure secondary to aspiration pneumonia Severe sepsis secondary to aspiration pneumonia Dementia Chronic diastolic congestive heart failure Hypertension Hyperlipidemia GERD Granddaughter in law Saba at bedside who is [facility]. She reports they were working on having DNR placed in retirement but he had not been arranged yet. She states her grandmother in law Ms. Robins would not want any aggressive measures as she is quite frail and condition to begin with. We discussed the option of transfer to tertiary center for aggressive management including intubation and likely prolonged hospitalization versus staying here with comfort measures only and likely inpatient hospice. She said without a doubt patient would want comfort measures and hospice. In-hospital DNR was signed by [facility], continue with comfort measures. patient services technician consult in place. DVT PPX: None Code status: DNR/DNI, comfort measures Discharge Plan: Other (inp hospice) Plan to discharge in: Greater than 2 days - Advance Directives Does patient have a Living Will: No Does patient have a Durable POA for Healthcare: No - Code Status/Comfort Care Code Status Assessed: Yes (DNR/DNI, comfort measures) Critical Care: No Time Spent Managing Pts Care (In Minutes): 70
[2022-12-03] MEDS ORDERED: LORazepam 2 MG/ML VIAL IV PRN (22:18)
[2022-12-03] MEDS ORDERED: ONDANSETRON 4 MG/2 ML VIAL IV PRN (22:18)
[2022-12-03 23:47] VITALS: BMI 17.5
[2022-12-04] MEDS: MORPHINE 2 MG/ML SYR IV PRN ×2 (08:27→13:33)
[2022-12-04 08:30] VITALS: O2SAT 97
--- NOTE | 2022-12-04 12:05 | EKG ---
Test Date: 2022-12-03 Test Time: 15:38:53 Registered Nurse Maternity: JASE MEASUREMENT RESULTS: Intervals: Rate: 91 VT: 266 QRSD: 78 QT: 390 QTc: 479 [place]: P: 90 VT: 266 QRS: 64 T: -12 INTERPRETIVE STATEMENTS: Sinus rhythm with 1st degree AV block Marked ST abnormality, possible inferior subendocardial injury Abnormal ECG Compared to ECG 05/31/2018 01:40:38 First degree AV block now present ST (T wave) deviation now present Atrial premature complex(es) no longer present Electronically Signed On 12-04-22 12:03:29 CDT by Carlos Busch
[2022-12-04] MEDS ORDERED: BENZONATATE 100 MG CAP PO PRN (13:44)
--- NOTE | 2022-12-04 14:27 | P.PN ---
Date of Service: 12/04/22 Subjective: comfort care no acute events overnight family at bedside ROS: 10 point ROS as noted above, otherwise negative Physical Exam: GEN: Alert, oriented, NAD HEENT: Normal conjunctiva, sclera anicteric CV: Regular rate and rhythm, no edema Pulm: Nonlabored respirations on 3L NC ABD: Soft, nontender, nondistended MSK: No joint tenderness Integumentary: No rashes Neuro: Normal speech, normal affect Sandoval in place vitals reviewed Problem List: Acute hypercapnic respiratory failure secondary to aspiration pneumonia Severe sepsis secondary to aspiration pneumonia Dementia Chronic diastolic congestive heart failure Hypertension Hyperlipidemia GERD Granddaughter in law Saba at bedside who is [facility]. She reports they were working on having DNR placed in [place] but he had not been arranged yet. She states her grandmother in law Ms. Robins would not want any aggressive measures as she is quite frail and condition to begin with. We discussed the option of transfer to tertiary center for aggressive management including intubation and likely prolonged hospitalization versus staying here with comfort measures only and likely inpatient hospice. She said without a doubt patient would want comfort measures and hospice. In-hospital DNR was signed by [facility], continue with comfort measures. access services representative consult in place. Code: DNR
[2022-12-04 16:58] VITALS: BP 121/64; TEMP 99.5
[2022-12-04 18:05] LABS: Blood O2 Saturation 97.4 % (92-98.5)
[2022-12-04 18:06] LABS: Blood Gas Oxyhemoglobin 95.5 % (94-97)
--- NOTE | 2022-12-05 11:41 | P.DS ---
Admission Date: 12/03/22 Discharge Date: 12/04/22 Disposition: DC TO HOSPICE INTERNAL GIP FAC Reason for Admission: Respiratory failure Brief History of Present Illness: 87yo F, PMH: dementia, CHF, CAD, GERD, hyperlipidemia who stays at [facility] for the last 3 years Patient presents emergency department with shortness of breath. Per [facility] staff she was lying flat on her back when she vomited and subsequently aspirated causing her to be short of breath. Upon arrival to the emergency department patient was placed on nonrebreather, she ended up requiring BiPAP, ABG was obtained which showed initial pH of 7.11 and PCO2 65.2. Repeat ABG was obtained about an hour later pH of 7.14 PCO2 of 60.5, initially on nursing paper patient was full code for that reason transfer was initiated this was not have woolen suiting shrinker/pulmonology available patient will require ICU level of care and possible intubation. After discussion with woolen suiting shrinker from [facility] recommendation for intubation was noted for ED physician. Before intubation [facility] staff was unable to get hold of patient and next of kin/BRICE Walter granddaughter in law who stated they are working on having a DNR from place and she would not want to be placed on a ventilator or any circumstances. Given he came to bedside and reported patient would not want any of these aggressive measures, wants her admitted with comfort measures only. Arrangement for likely inpatient hospice. Hospital Course: Problem List: Acute hypercapnic respiratory failure secondary to aspiration pneumonia Severe sepsis secondary to aspiration pneumonia Dementia Chronic diastolic congestive heart failure Hypertension Hyperlipidemia GERD Physical Exam: GEN: Alert, oriented, NAD HEENT: Normal conjunctiva, sclera anicteric CV: Regular rate and rhythm, no edema Pulm: Nonlabored respirations on 3L NC ABD: Soft, nontender, nondistended MSK: No joint tenderness Integumentary: No rashes Neuro: Normal speech, normal affect Vital Signs/Physical Exam: Temp Pulse Resp BP Pulse Ox 99.5 F 98 H 24 H 121/64 94 12/04/22 16:00 12/04/22 16:00 12/04/22 16:00 12/04/22 16:00 12/04/22 16:00 Laboratory Data at Discharge: WBC 15.70 thou/uL (4.3-10.9) H 08/30/23 16:23 Hgb 9.5 g/dL (12.0-15.0) L 12/03/22 16:23 Hct 30.1 % (36.0-45.0) L 12/03/22 16:23 Plt Count 269 thou/uL (152-406) 12/03/22 16:23 PT 11.7 SECONDS (9.5-12.5) 12/03/22 16:23 INR 1.06 12/03/22 16:23 Sodium 145 mEq/L (136-145) 12/03/22 16:23 Potassium 3.2 mEq/L (3.5-5.1) L 12/03/22 16:23 BUN 25 mg/dL (7-18) H 12/03/22 16:23 Creatinine 1.13 mg/dL (0.55-1.02) H 12/03/22 16:23 Glucose 374 mg/dL (74-106) H 12/03/22 16:23 Total Bilirubin 0.2 mg/dL (0.2-1.0) 12/03/22 16:23 AST 26 U/L (15-37) 12/03/22 16:23 ALT 25 U/L (13-56) 12/03/22 16:23 Alkaline Phosphatase 89 U/L (45-117) 12/03/22 16:23 Home Medications: Melatonin 20 mg PO BEDTIME 07/04/11 Cetirizine HCl [Zyrtec*] 1 tab PO DAILY 05/31/18 Followup: NONE,NONE [Primary Care Provider] - Time spent managing pt's care (in minutes): 45
== END 2022-12-04 17:32 | disposition hospice, inpatient (51) | DRG 871 ==
LOC: ER 15:30 → ERHOLD 21:50 → 4TH 22:00
PROVIDERS: ADMIT Internal Medicine; ATTEND Hospitalist
PROC: 5A09357 Assistance with Respiratory Ventilation, Less than 24 Consecutive Hours, Continuous Positive Airway Pressure (ICD-10-PCS; principal; 2022-12-03)
DX: A41.9 Sepsis, unspecified organism (principal); J18.9 Pneumonia, unspecified organism; J69.0 Pneumonitis due to inhalation of food and vomit; J96.02 Acute respiratory failure with hypercapnia; I50.32 Chronic diastolic (congestive) heart failure; E87.29 Other acidosis; R65.20 Severe sepsis without septic shock; I11.0 Hypertensive heart disease with heart failure; E86.0 Dehydration; E78.5 Hyperlipidemia, unspecified; F03.90 Unspecified dementia, unspecified severity, without behavioral disturbance, psychotic disturbance, mood disturbance, and anxiety; K21.9 Gastro-esophageal reflux disease without esophagitis; I25.10 Atherosclerotic heart disease of native coronary artery without angina pectoris; Z66 Do not resuscitate; Z79.899 Other long term (current) drug therapy; Z88.5 Allergy status to narcotic agent
CPT/HCPCS: 36415; 36600; 51702; 71045; 80053; 81001; 82805; 83605; 84145; 84484; 85025; 85610; 87040; 87635; 87804; 93005; 94660; 99285; J0692; J2270; J2405; J7050

== ENCOUNTER 2022-12-04 17:36 | Inpatient (IN) | payer OTHER ==
[2022-12-04 17:43] VITALS: BMI 17.3
[2022-12-04] MEDS ORDERED: LORazepam 2 MG/ML VIAL IV SCH (18:00)
[2022-12-04] MEDS ORDERED: BENZONATATE 100 MG CAP PO PRN (20:02)
[2022-12-04] MEDS: LORazepam 2 MG/ML VIAL IV PRN (20:39)
[2022-12-04] MEDS: HYDROMORPHONE HCL 1 MG/ML INJ IV PRN (21:11)
--- NOTE | 2022-12-04 21:19 | P.HP ---
Certification for Inpatient Patient admitted to: Inpatient Practitioner: I am a practitioner with admitting privileges, knowledge of patient current condition, hospital course, and medical plan of care. Services: Services provided to patient in accordance with Admission requirements found in Title 42 Section 412.3 of the Code of Federal Regulations Patient History Date of Service: 12/04/22 Reason for admission: HOSPICE FOR SEPSIS History of Present Illness: HOSPITAL MD ADVISED HOSPICE FOR SEPSIS FOR THIS PATIENT AND FAMILY HAS AGREED TO DO SO. I SAW HER THIS PM. SHE IS NOT ABLE TO VERBALIZE ANY COMPLAINTS. Allergies codeine Allergy (Intermediate, Verified 07/08/11 15:05) Rash Home Medications: Melatonin 20 mg PO BEDTIME 07/04/11 Cetirizine HCl [Zyrtec*] 1 tab PO DAILY 05/31/18 - Past Medical/Surgical History Diabetic: No -: dementia -: CHF -: CAD -: GERD -: HLD -: knee replacement Psychosocial/ Personal History: Lives at [facility] - Social History Smoking Status: Never smoker Alcohol use: Yes CD- Drugs: No Caffeine use: Yes Place of Residence: [place] Review of Systems is unable to be obtained Physical Examination - Vital Signs Temperature: 97.1 F Blood Pressure: 111/59 Pulse: 69 Respirations: 16 Pulse Ox (%): 93 - Physical Exam General: Mild distress, Confused (NON VERBAL BUT AWAKE.) HEENT: Atraumatic, PERRLA, Mucous membr. moist/pink, EOMI, Sclerae nonicteric Neck: Supple, 2+ carotid pulse no bruit, No LAD, Without JVD or thyroid abnormality Respiratory: Clear to auscultation bilaterally, Normal air movement Cardiovascular: Regular rate/rhythm, Normal S1 S2 Gastrointestinal: Non-distended Musculoskeletal: No tenderness Integumentary: No rashes Neurological: Dementia (NOT VERBAL. NOT ABLE TO COMMUNICATE.) Lymphatics: No axilla or inguinal lymphadenopathy Assessment and Plan - Problems (Diagnosis) (1) Sepsis Current Visit: Yes Status: Acute Plan: ETIOLOGY OF SEPSIS IS UNCLEAR CXR NEG CT ABDOMEN NOT DONE BY ADMITTING DOCTORS I SUSPECT AT THIS POINT IT IS NOT NECESSARY. PROGNOSIS POOR SHE MAY HAVE TO GO HOME OR NH IF DOES NOT DECLINE FAST ENOUGH I TALKED TO FAMILY AT BEDSIDE. GRAND SON IS AWARE. (2) Normal anion gap metabolic acidosis Current Visit: Yes Status: Acute - Advance Directives Does patient have a Living Will: Yes Does patient have a Durable POA for Healthcare: Yes
[2022-12-05] MEDS: LORazepam 2 MG/ML VIAL IV PRN ×4 (03:03→17:35)
[2022-12-05] MEDS: HYDROMORPHONE HCL 1 MG/ML INJ IV PRN ×5 (03:04→22:37)
[2022-12-05] MEDS: SCOPOLAMINE HYDROBROMIDE PATCH TD SCH (17:25)
--- NOTE | 2022-12-05 21:37 | P.PN ---
Subjective Date of Service: 12/05/22 Chief Complaint: HOSPICE FOR SEPSIS Subjective: Worsening TODAY SHE COULD NOT BE AROUSED. SHE IS BREATHING RAPIDLY. Review of Systems is unable to be obtained Physical Examination - Vital Signs Temperature: 99.1 F Blood Pressure: 118/65 Pulse: 91 Respirations: 15 Pulse Ox (%): 83 - Physical Exam General: Mild distress, Unresponsive (MOVES WITH PAINFUL STIMULUS.) HEENT: Atraumatic, PERRLA, EOMI Neck: Supple, JVD not distended Respiratory: Clear to auscultation bilaterally, Normal air movement Cardiovascular: Normal S1 S2, No murmurs Gastrointestinal: Normal bowel sounds, No tenderness Musculoskeletal: No tenderness Integumentary: No rashes Neurological: Dementia Lymphatics: No axilla or inguinal lymphadenopathy - Studies Medications List Reviewed: Yes Assessment And Plan - Current Problems (Diagnosis) (1) Sepsis Current Visit: Yes Status: Acute Plan: ETIOLOGY OF SEPSIS IS UNCLEAR CXR NEG CT ABDOMEN NOT DONE BY ADMITTING DOCTORS I SUSPECT AT THIS POINT IT IS NOT NECESSARY. PROGNOSIS POOR SHE MAY HAVE TO GO HOME OR NH IF DOES NOT DECLINE FAST ENOUGH I TALKED TO FAMILY AT BEDSIDE. GRAND SON IS AWARE. UNRESPONSIVE TODAY REMOVE OXYGEN IT WILL PROLONG HER AGONY PROGNOSIS POOR LIFE MAY BE A COUPLE OF MORE DAYS. (2) Normal anion gap metabolic acidosis Current Visit: Yes Status: Acute
[2022-12-06] MEDS: HYDROMORPHONE HCL 1 MG/ML INJ IV PRN ×4 (05:46→20:04)
[2022-12-06] MEDS: LORazepam 2 MG/ML VIAL IV PRN ×4 (05:46→20:03)
--- NOTE | 2022-12-06 08:50 | P.PN ---
Subjective Date of Service: 12/06/22 Chief Complaint: HOSPICE FOR SEPSIS Subjective: Worsening SLOW BREATHING NOT RESPONSIVE VERBALLY. MOVED WITH PAINFUL STIMULUS Review of Systems is unable to be obtained Physical Examination - Vital Signs Temperature: 99.1 F Blood Pressure: 118/65 Pulse: 91 Respirations: 15 Pulse Ox (%): 83 - Physical Exam General: Unresponsive HEENT: Atraumatic Neck: Supple Respiratory: Clear to auscultation bilaterally Cardiovascular: Normal S1 S2 Gastrointestinal: Normal bowel sounds Neurological: Other (SEMICOMA. MOVES WITH PAINFUL STIMULUS.) - Studies Medications List Reviewed: Yes Assessment And Plan - Current Problems (Diagnosis) (1) Sepsis Current Visit: Yes Status: Acute Plan: ETIOLOGY OF SEPSIS IS UNCLEAR CXR NEG CT ABDOMEN NOT DONE BY ADMITTING DOCTORS I SUSPECT AT THIS POINT IT IS NOT NECESSARY. PROGNOSIS POOR SHE MAY HAVE TO GO HOME OR NH IF DOES NOT DECLINE FAST ENOUGH I TALKED TO FAMILY AT BEDSIDE. GRAND SON IS AWARE. UNRESPONSIVE TODAY REMOVE OXYGEN IT WILL PROLONG HER AGONY PROGNOSIS POOR LIFE MAY BE A COUPLE OF MORE DAYS. WORSE ON DAILY BASIS CONTINUE COMFORT CARE ADD SCOP PATCH FOR SECRETIONS. DNR FAMILY AT BEDSIDE BUT ASLEEP. (2) Normal anion gap metabolic acidosis Current Visit: Yes Status: Acute
[2022-12-07] MEDS: HYDROMORPHONE HCL 1 MG/ML INJ IV PRN ×5 (01:16→21:07)
[2022-12-07] MEDS: LORazepam 2 MG/ML VIAL IV PRN ×4 (01:16→19:17)
--- NOTE | 2022-12-07 22:13 | P.PN ---
Subjective Date of Service: 12/07/22 Chief Complaint: HOSPICE FOR SEPSIS Subjective: Worsening SHE IS COMATOSE AND RESPONDS BY MOVING TO PAINFUL STIMULUS. Review of Systems 10-point ROS is otherwise unremarkable General: Weakness Physical Examination - Vital Signs Temperature: 99 F Blood Pressure: 165/82 Pulse: 98 Respirations: 16 Pulse Ox (%): 94 - Physical Exam General: Unresponsive HEENT: Atraumatic, PERRLA, EOMI Neck: Supple, JVD not distended Respiratory: Diminished Cardiovascular: Regular rate/rhythm Gastrointestinal: Normal bowel sounds, No tenderness Musculoskeletal: No tenderness Integumentary: No rashes Neurological: Other (SEMI COMA) Lymphatics: No axilla or inguinal lymphadenopathy - Studies Medications List Reviewed: Yes Assessment And Plan - Current Problems (Diagnosis) (1) Sepsis Current Visit: Yes Status: Acute Plan: ETIOLOGY OF SEPSIS IS UNCLEAR CXR NEG CT ABDOMEN NOT DONE BY ADMITTING DOCTORS I SUSPECT AT THIS POINT IT IS NOT NECESSARY. PROGNOSIS POOR SHE MAY HAVE TO GO HOME OR NH IF DOES NOT DECLINE FAST ENOUGH I TALKED TO FAMILY AT BEDSIDE. GRAND SON IS AWARE. UNRESPONSIVE TODAY REMOVE OXYGEN IT WILL PROLONG HER AGONY PROGNOSIS POOR LIFE MAY BE A COUPLE OF MORE DAYS. WORSE ON DAILY BASIS CONTINUE COMFORT CARE ADD SCOP PATCH FOR SECRETIONS. DNR FAMILY AT BEDSIDE BUT ASLEEP. (2) Normal anion gap metabolic acidosis Current Visit: Yes Status: Acute
[2022-12-08] MEDS: LORazepam 2 MG/ML VIAL IV PRN ×5 (00:23→23:59)
[2022-12-08] MEDS: HYDROMORPHONE HCL 1 MG/ML INJ IV PRN ×4 (03:34→21:24)
[2022-12-08] MEDS: SCOPOLAMINE HYDROBROMIDE PATCH TD SCH (08:38)
--- NOTE | 2022-12-08 19:24 | P.PN ---
Subjective Date of Service: 12/08/22 Chief Complaint: HOSPICE FOR SEPSIS Subjective: Worsening SHE IS COMATOSE AND RESPONDS BY MOVING TO PAINFUL STIMULUS. SHE IS MORE AND MORE UNRESPONSIVE. Physical Examination - Vital Signs Temperature: 97.3 F Blood Pressure: 127/64 Pulse: 95 Respirations: 22 Pulse Ox (%): 89 - Physical Exam General: Mild distress, Unresponsive (MOVES WITH PAINFUL STIMULUS BUT DOES NOT WAKE UP.) HEENT: Atraumatic, PERRLA, EOMI Neck: Supple, JVD not distended Respiratory: Clear to auscultation bilaterally, Normal air movement Cardiovascular: Regular rate/rhythm, Normal S1 S2 Gastrointestinal: Normal bowel sounds, No tenderness Musculoskeletal: No tenderness Integumentary: No rashes Neurological: Other (SEMICOMA) Lymphatics: No axilla or inguinal lymphadenopathy - Studies Medications List Reviewed: Yes Assessment And Plan - Current Problems (Diagnosis) (1) Sepsis Current Visit: Yes Status: Acute Plan: ETIOLOGY OF SEPSIS IS UNCLEAR CXR NEG CT ABDOMEN NOT DONE BY ADMITTING DOCTORS I SUSPECT AT THIS POINT IT IS NOT NECESSARY. PROGNOSIS POOR SHE MAY HAVE TO GO HOME OR NH IF DOES NOT DECLINE FAST ENOUGH TALKE TO DAUGHTER TODAY. SHE IS AT BEDSIDE THEY ARE HAPPY WITH COMFORT CARE. (2) Normal anion gap metabolic acidosis Current Visit: Yes Status: Acute
[2022-12-09] MEDS: HYDROMORPHONE HCL 1 MG/ML INJ IV PRN ×5 (04:19→23:21)
[2022-12-09] MEDS: LORazepam 2 MG/ML VIAL IV PRN ×2 (06:48→12:37)
[2022-12-09] MEDS: FENTANYL 25 MCG/PATCH TD SCH (16:15)
--- NOTE | 2022-12-09 21:20 | P.PN ---
Subjective Date of Service: 12/09/22 Chief Complaint: HOSPICE FOR SEPSIS Subjective: Worsening SHE IS COMATOSE. FAMILY AT BEDSIDE. Review of Systems 10-point ROS is otherwise unremarkable General: Weakness Physical Examination - Vital Signs Temperature: 99.5 F Blood Pressure: 141/73 Pulse: 94 Respirations: 14 Pulse Ox (%): 86 - Physical Exam General: Comatose HEENT: Atraumatic, PERRLA, EOMI Neck: Supple, JVD not distended Respiratory: Clear to auscultation bilaterally, Normal air movement Cardiovascular: Regular rate/rhythm, Normal S1 S2 Gastrointestinal: Normal bowel sounds, No tenderness Musculoskeletal: No tenderness Integumentary: No rashes Neurological: Other (COMATOSE.) Lymphatics: No axilla or inguinal lymphadenopathy - Studies Medications List Reviewed: Yes Assessment And Plan - Current Problems (Diagnosis) (1) Sepsis Current Visit: Yes Status: Acute Plan: ETIOLOGY OF SEPSIS IS UNCLEAR CXR NEG CT ABDOMEN NOT DONE BY ADMITTING DOCTORS I SUSPECT AT THIS POINT IT IS NOT NECESSARY. PROGNOSIS POOR SHE MAY HAVE TO GO HOME OR NH IF DOES NOT DECLINE FAST ENOUGH HOSPICE WILL HAVE TO CONTINUE AT HOME IF FENTANYL PATCH WORKS. SHE MAY NEED INPATIENT IF ONLY IV MEDS WORK FOR HER END STAGE AGITATION. (2) Normal anion gap metabolic acidosis Current Visit: Yes Status: Acute
[2022-12-10] MEDS: LORazepam 2 MG/ML VIAL IV PRN ×2 (03:46→15:39)
[2022-12-10] MEDS: HYDROMORPHONE HCL 1 MG/ML INJ IV PRN ×3 (06:19→22:41)
--- NOTE | 2022-12-10 21:32 | P.PN ---
Subjective Date of Service: 12/10/22 Chief Complaint: HOSPICE FOR SEPSIS Subjective: Worsening SHE IS COMATOSE. FAMILY AT BEDSIDE. SHE IS WORSE OXYGEN SAT DROPPING TO 70% Review of Systems 10-point ROS is otherwise unremarkable Physical Examination - Vital Signs Temperature: 97.8 F Blood Pressure: 102/53 Pulse: 96 Respirations: 16 Pulse Ox (%): 70 - Physical Exam General: Comatose HEENT: Atraumatic, PERRLA, EOMI Neck: Supple, JVD not distended Respiratory: Clear to auscultation bilaterally, Normal air movement Cardiovascular: Abnormal S1 S2 Gastrointestinal: Normal bowel sounds, No tenderness Musculoskeletal: No tenderness Integumentary: No rashes Neurological: Other (COMATOSE.) Lymphatics: No axilla or inguinal lymphadenopathy - Studies Medications List Reviewed: Yes Assessment And Plan - Current Problems (Diagnosis) (1) Sepsis Current Visit: Yes Status: Acute Plan: ETIOLOGY OF SEPSIS IS UNCLEAR CXR NEG CT ABDOMEN NOT DONE BY ADMITTING DOCTORS I SUSPECT AT THIS POINT IT IS NOT NECESSARY. PROGNOSIS POOR SHE MAY HAVE TO GO HOME OR NH IF DOES NOT DECLINE FAST ENOUGH FENTANYL PATCHE IS NOT WORKING. SHE NEEDS IV DILAUDID FOR PAIN CONTROL AND ATIVAN FOR AGITATION CONTROL. SHE NEEDS INPATIENT HOSPICE. (2) Normal anion gap metabolic acidosis Current Visit: Yes Status: Acute
[2022-12-11] MEDS: SCOPOLAMINE HYDROBROMIDE PATCH TD SCH (08:22)
[2022-12-11] MEDS: HYDROMORPHONE HCL 1 MG/ML INJ IV PRN ×2 (08:22→17:48)
[2022-12-11] MEDS: LORazepam 2 MG/ML VIAL IV PRN (20:42)
--- NOTE | 2022-12-11 22:04 | P.PN ---
Subjective Date of Service: 12/11/22 Chief Complaint: HOSPICE FOR SEPSIS Subjective: Worsening SHE IS WORSE WE EXPECTED. SHE IS KEPT COMFORTABLE. Review of Systems 10-point ROS is otherwise unremarkable General: Weakness Physical Examination - Vital Signs Temperature: 97.8 F Blood Pressure: 94/50 Pulse: 72 Respirations: 12 Pulse Ox (%): 74 - Physical Exam General: Moderate distress, Comatose HEENT: Atraumatic, PERRLA, EOMI Neck: Supple, JVD not distended Respiratory: Clear to auscultation bilaterally, Normal air movement Cardiovascular: Regular rate/rhythm, Normal S1 S2 Gastrointestinal: Normal bowel sounds, No tenderness Musculoskeletal: No tenderness Integumentary: No rashes Neurological: Other (COMA.) Lymphatics: No axilla or inguinal lymphadenopathy - Studies Medications List Reviewed: Yes Assessment And Plan - Current Problems (Diagnosis) (1) Sepsis Current Visit: Yes Status: Acute Plan: FENTANYL PATCHE IS NOT WORKING. SHE NEEDS IV DILAUDID FOR PAIN CONTROL AND ATIVAN FOR AGITATION CONTROL. SHE NEEDS INPATIENT HOSPICE. OXYGEN SAT IS LOW 60% NOW AND BP IS STARTING TO DROP SHE SHOULD NOT LAST LONG. SHE IS COMFORTABLE AND NURSES ARE DOING GREAT TO GIVE HER IV MEDS ON TIME. WITHOUT IV MEDS SHE WILL BE VERY UNCOMFORTABLE. (2) Normal anion gap metabolic acidosis Current Visit: Yes Status: Acute
[2022-12-12] MEDS: HYDROMORPHONE HCL 1 MG/ML INJ IV PRN ×3 (02:32→23:45)
[2022-12-12] MEDS: FENTANYL 25 MCG/PATCH TD SCH (07:34)
[2022-12-12] MEDS: LORazepam 2 MG/ML VIAL IV PRN (07:34)
--- NOTE | 2022-12-12 14:49 | P.PN ---
Subjective Date of Service: 12/12/22 Chief Complaint: HOSPICE FOR SEPSIS Subjective: Worsening SHE IS WORSE WE EXPECTED. SHE IS KEPT COMFORTABLE. TOTAL COMATOSE NO RESPONSE TO ANY COMMAND RAPID BREATHING THAT IS SHALLOW WITH PAUSES. Review of Systems is unable to be obtained Physical Examination - Vital Signs Temperature: 97.0 F Blood Pressure: 105/54 Pulse: 93 Respirations: 14 Pulse Ox (%): 76 - Physical Exam General: Comatose Respiratory: Diminished (RAPID WITH PAUSES.) Cardiovascular: Normal S1 S2 - Studies Medications List Reviewed: Yes Assessment And Plan - Current Problems (Diagnosis) (1) Sepsis Current Visit: Yes Status: Acute Plan: FENTANYL PATCHE IS NOT WORKING. SHE NEEDS IV DILAUDID FOR PAIN CONTROL AND ATIVAN FOR AGITATION CONTROL. SHE NEEDS INPATIENT HOSPICE. OXYGEN SAT IS LOW 60% NOW AND BP IS STARTING TO DROP SHE SHOULD NOT LAST LONG. SHE IS COMFORTABLE AND NURSES ARE DOING GREAT TO GIVE HER IV MEDS ON TIME. WITHOUT IV MEDS SHE WILL BE VERY UNCOMFORTABLE. MEDS ARE GIVEN TO KEEP HER COMFORTABLE IV NOT ABLE TO TAKE MEDS PO NEEDS TO BE INPATIENT GETS RESTLESS WITH PAIN IF NOT GIVEN IV DILAUDID. (2) Normal anion gap metabolic acidosis Current Visit: Yes Status: Acute
[2022-12-13] MEDS: HYDROMORPHONE HCL 1 MG/ML INJ IV PRN ×3 (05:14→20:16)
--- NOTE | 2022-12-13 09:43 | P.PN ---
Subjective Date of Service: 12/13/22 Chief Complaint: HOSPICE FOR SEPSIS SHE IS WORSE WE EXPECTED. SHE IS KEPT COMFORTABLE. TOTAL COMATOSE NO RESPONSE TO ANY COMMAND RAPID BREATHING THAT IS SHALLOW WITH PAUSES. COTINUED RAPID ENDSTAGE BREATHING GETS RESTLESS EVERY FEW HOURS NEEDING IV MEDS. Review of Systems is unable to be obtained Physical Examination - Vital Signs Temperature: 97.0 F Blood Pressure: 112/55 Pulse: 95 Respirations: 14 Pulse Ox (%): 76 - Physical Exam General: Comatose, Other (DRY MOUTH, OPEN MOUTH. CACHECHTIC, FRAIL. ) HEENT: Atraumatic, PERRLA, EOMI Neck: Supple, JVD not distended Respiratory: Diminished (RAPID) Cardiovascular: Irregular heart rate/rhythm Gastrointestinal: Normal bowel sounds, No tenderness Musculoskeletal: No tenderness Integumentary: No rashes Neurological: Normal speech, Normal tone, Normal affect Lymphatics: No axilla or inguinal lymphadenopathy - Studies Medications List Reviewed: Yes Assessment And Plan - Current Problems (Diagnosis) (1) Sepsis Current Visit: Yes Status: Acute Plan: FENTANYL PATCHE IS NOT WORKING. SHE NEEDS IV DILAUDID FOR PAIN CONTROL AND ATIVAN FOR AGITATION CONTROL. SHE NEEDS INPATIENT HOSPICE. OXYGEN SAT IS LOW 60% NOW AND BP IS STARTING TO DROP SHE SHOULD NOT LAST LONG. SHE IS COMFORTABLE AND NURSES ARE DOING GREAT TO GIVE HER IV MEDS ON TIME. WITHOUT IV MEDS SHE WILL BE VERY UNCOMFORTABLE. MEDS ARE GIVEN TO KEEP HER COMFORTABLE IV NOT ABLE TO TAKE MEDS PO NEEDS TO BE INPATIENT GETS RESTLESS WITH PAIN IF NOT GIVEN IV DILAUDID. NO FAMILY AT BEDSIDE CONTINUED NEED OF IV MEDS FOR RESTLESSNESS THAT IS FROM TERMINAL CONDITION. (2) Normal anion gap metabolic acidosis Current Visit: Yes Status: Acute
[2022-12-14] MEDS: HYDROMORPHONE HCL 1 MG/ML INJ IV PRN ×5 (00:26→17:50)
[2022-12-14] MEDS: SCOPOLAMINE HYDROBROMIDE PATCH TD SCH (09:00)
[2022-12-14 12:48] VITALS: BP 90/49; TEMP 97.2
--- NOTE | 2022-12-14 20:24 | P.PN ---
Subjective Date of Service: 12/14/22 Chief Complaint: HOSPICE FOR SEPSIS Subjective: Worsening SHE IS WORSE WE EXPECTED. SHE IS KEPT COMFORTABLE. TOTAL COMATOSE NO RESPONSE TO ANY COMMAND RAPID BREATHING THAT IS SHALLOW WITH PAUSES. COTINUED RAPID ENDSTAGE BREATHING GETS RESTLESS EVERY FEW HOURS NEEDING IV MEDS. Review of Systems is unable to be obtained Physical Examination - Vital Signs Temperature: 97.2 F Blood Pressure: 90/49 Pulse: 90 Respirations: 18 Pulse Ox (%): 84 - Physical Exam General: Cachectic, Mild distress, Unresponsive Neck: Supple Cardiovascular: Normal S1 S2 Gastrointestinal: Normal bowel sounds Integumentary: No rashes Neurological: Other - Studies Medications List Reviewed: Yes Assessment And Plan - Current Problems (Diagnosis) (1) Sepsis Current Visit: Yes Status: Acute Plan: FENTANYL PATCHE IS NOT WORKING. SHE NEEDS IV DILAUDID FOR PAIN CONTROL AND ATIVAN FOR AGITATION CONTROL. SHE NEEDS INPATIENT HOSPICE. OXYGEN SAT IS LOW 60% NOW AND BP IS STARTING TO DROP SHE SHOULD NOT LAST LONG. SHE IS COMFORTABLE AND NURSES ARE DOING GREAT TO GIVE HER IV MEDS ON TIME. WITHOUT IV MEDS SHE WILL BE VERY UNCOMFORTABLE. MEDS ARE GIVEN TO KEEP HER COMFORTABLE IV NOT ABLE TO TAKE MEDS PO NEEDS TO BE INPATIENT GETS RESTLESS WITH PAIN IF NOT GIVEN IV DILAUDID. THERE ARE NEW FAMILY MEMBERS AT BEDSIDE. HER BP IS STARTING DO DROP LOWER. SHE SHOULD NOT LAST MORE THAN A DAY OR TWO. (2) Normal anion gap metabolic acidosis Current Visit: Yes Status: Acute
[2022-12-14 23:55] VITALS: O2SAT 82
--- NOTE | 2022-12-16 21:31 | P.DS ---
Admission Date: 12/04/22 Discharge Date: 12/16/22 Disposition: Discharge Condition: Reason for Admission: HOSPICE FOR SEPSIS - Problems (1) Sepsis Status: Acute (2) Normal anion gap metabolic acidosis Status: Acute Brief History of Present Illness: HOSPITAL MD ADVISED HOSPICE FOR SEPSIS FOR THIS PATIENT AND FAMILY HAS AGREED TO DO SO. I SAW HER THIS PM. SHE IS NOT ABLE TO VERBALIZE ANY COMPLAINTS. Hospital Course: PATIENT WHO HAD SEPSIS RELATED HYPOXIC SHOCK GRADUALLY EXPECTED ON HOSPICE. SHE WAS KEPT COMFORTABLE WITH MEDS. Vital Signs/Physical Exam: Temp Pulse Resp BP Pulse Ox 97.2 F 90 18 90/49 L 84 L 12/14/22 20:24 12/14/22 20:24 12/14/22 20:24 12/14/22 20:24 12/14/22 20:24 Home Medications: Melatonin 20 mg PO BEDTIME 07/04/11 Cetirizine HCl [Zyrtec*] 1 tab PO DAILY 05/31/18
== END 2022-12-15 03:40 | disposition expired | DRG 951 ==
LOC: 4TH 17:36
PROVIDERS: ADMIT Internal Medicine; ATTEND Internal Medicine
DX: Z51.5 Encounter for palliative care (principal)
CPT/HCPCS: J1170